=== PATIENT | male | born 1955 | race Caucasian/White ===

== ENCOUNTER 2016-09-08 12:53 | Inpatient (IN) | payer MEDICARE ==
[~2016-09-08] VITALS: Ht 193 cm; Wt 112.8 kg
--- NOTE | 2016-09-08 13:38 | NUR ---
RECEIVED TO ROOM 2202 FROM 'S OFFICE AT THIS TIME. AT BEDSIDE. ALERT AND ORIENTED, WILL CONTINUE WITH PLAN OF CARE.
[2016-09-08 13:55] VITALS: BP 121/80
[2016-09-08 14:19] VITALS: BP 121/80; BMI 30.3
[2016-09-08 15:08] LABS: BASOPHILS 0.2 % (0-2); EOSINOPHILS 6.5 % (0-7); HEMATOCRIT 43.4 % (42.0-54.0); HEMOGLOBIN 15.2 g/dL (13.5-17.5); IMMATURE GRANULOCYTES 0.6 % (0-5); LYMPHOCYTES 18.2 % (15-50); MCH 30.5 pg (26.0-34.0); MCV 87.1 fL (80.0-100.0); MEAN PLATELET VOLUME 9.2 fL (7.4-10.4); MONOCYTES 12.5 % (2-11); RBC 4.98 10x6/uL (4.20-6.10); RDW 13.1 % (11.5-14.5); WBC 8.3 10x3/uL (4.8-10.8)
[2016-09-08 15:21] LABS: PLATELET COUNT 213 10x3/uL (130-400)
[2016-09-08 15:51] LABS: ALBUMIN 2.7 g/dL (3.4-5.0); ALKALINE PHOSPHATASE 64 U/L (46-116); ALT (SGPT) 14 U/L (10-68); BILIRUBIN - TOTAL 0.99 mg/dL (0.2-1.3); CALC OSMOLALITY 282 mosm/kg (275-300); CALCIUM 8.7 mg/dL (8.5-10.1); CARBON DIOXIDE 27.4 mmol/L (21.0-32.0); CHLORIDE - SERUM 101 mmol/L (98-107); CREATININE - SERUM 0.9 mg/dL (0.6-1.3); POTASSIUM - SERUM 3.5 mmol/L (3.5-5.1); PROTEIN - SERUM 6.3 g/dL (6.4-8.2); SODIUM 139 mmol/L (136-145); UREA NITROGEN 10 mg/dL (7-18); eGFR NON AFRICAN AMERICAN > 90 mL/min (90-120)
[2016-09-08 15:57] LABS: GLUCOSE 206 mg/dL (74-106)
[2016-09-08 20:00] VITALS: BP 121/78
[2016-09-09 00:11] VITALS: BP 131/66
[2016-09-09 04:00] VITALS: BP 130/83
--- NOTE | 2016-09-09 08:41 | NUR ---
AWAKE AND ALERT. ORIENTED X3. C/O ABDOMINAL PAIN THIS AM. LUNGS ARE CLEAR BILATERALLY, NO COUGH NOTED. SKIN IS INTACT WITHOUT REDNESS. IV TO LEFT FOREARM IS PATENT WITHOUT REDNESS AT INSERTION SITE. SITTING UP ON SIDE OF BED EATING BREAKFAST. AT BEDSIDE.
[2016-09-09 08:59] VITALS: BP 110/65
--- NOTE | 2016-09-09 10:39 | NUR ---
ATE ALL OF BREAKFAST. UP TO BR PER SELF. LARGE AMOUNT OF BRIGHT RED BLOOD IN STOOL. WILL MONITOR.
[2016-09-09 12:26] LABS: HEMATOCRIT 42.6 % (42.0-54.0); HEMOGLOBIN 14.8 g/dL (13.5-17.5)
[2016-09-09 13:02] VITALS: Ht 193 cm; Wt 112.8 kg
[2016-09-09 13:59] VITALS: BP 120/72
--- NOTE | 2016-09-09 14:00 | NUR ---
OFF UNIT VIA BED FOR TEST.
--- NOTE | 2016-09-09 15:00 | NUR ---
RETURNED FROM TEST. DENIES NEEDS. NO CHANGES.
[2016-09-09 17:43] VITALS: BP 130/80
--- NOTE | 2016-09-09 18:16 | NUR ---
DRANK ABOUT HALF OF CLEAR LIQUID SUPPER. VERY UPSET WITH DIET. WANTS REAL FOOD. NO CHANGES NOTED AT THIS TIME. DENIES NEEDS.
[2016-09-09 20:00] VITALS: BP 122/78
[2016-09-09 20:08] LABS: HEMATOCRIT 39.2 % (42.0-54.0); HEMOGLOBIN 13.7 g/dL (13.5-17.5)
[2016-09-10] VITALS: BP 105/61
[2016-09-10 04:00] VITALS: BP 124/81
--- NOTE | 2016-09-10 04:13 | NUR ---
PATIENT RESTING WITH EYES CLOSED AND NO VISIBLE SIGNS OF DISTRESS. BED IN LOWEST POSITION AND CALL LIGHT WITHIN REACH.
[2016-09-10 05:33] LABS: HEMATOCRIT 41.5 % (42.0-54.0); HEMOGLOBIN 14.3 g/dL (13.5-17.5)
--- NOTE | 2016-09-10 07:47 | NUR ---
AWAKE AND ALERT. ORIENTED X3. NO C/O THIS AM EXCEPT BEING HUNGRY. LUNGS ARE CLEAR BILATERALLY, NO COUGH NOTED. SKIN IS INTACT WITHOUT REDNESS. IV TO LEFT FOREARM IS PATENT WITHOUT REDNESS AT INSERTION SITE. FAMILY IN ROOM. DENIES NEEDS.
[2016-09-10 09:02] VITALS: BP 117/79
--- NOTE | 2016-09-10 09:48 | NUR ---
DRANK MOST OF BREAKFAST. FAMILY AT BEDSDIE. DENIES NEEDS.
--- NOTE | 2016-09-10 10:09 | NUR ---
RESTING QUIETLY WITH EYES CLOSED.
[2016-09-10 11:59] LABS: HEMATOCRIT 40.1 % (42.0-54.0); HEMOGLOBIN 13.9 g/dL (13.5-17.5)
[2016-09-10 12:44] VITALS: BP 115/78
--- NOTE | 2016-09-10 14:35 | NUR ---
REQUESTED AND GIVEN ONE HYDROCODONE PO FOR C/O ABDOMINAL PAIN LEVEL 9. WILL MONITOR.
[2016-09-10 17:19] VITALS: BP 101/66
--- NOTE | 2016-09-10 18:17 | NUR ---
REFUSED SUPPER TRAY. RESTING QUIETLY IN BED. DENIES NEEDS. NO CHANGES NOTED.
[2016-09-10 20:00] VITALS: BP 102/60
--- NOTE | 2016-09-10 20:00 | NUR ---
REC'D IN BED WITH EYES CLOSED EASILY AROUSED WHEN NAME IS CALLED. RESP EVEN AND UNLABORED WITH NO DISTRESS NOTED. CAN EXPRESS NEEDS AND WANTS. ASSESSMENT COMPLETED. C/L IN REACH AT BEDSIDE.
--- NOTE | 2016-09-10 21:40 | NUR ---
C/O ABD PAIN RATING 8/10 ON PAIN SCALE WAS MEDICATED WITH NORCO PER ORDERS. AT BEDSIDE. C/L IN REACH.
[2016-09-11] VITALS: BP 94/63
--- NOTE | 2016-09-11 02:00 | NUR ---
PT IN BED WITH NO DISTRESS. RESPIRATIONS EVEN AND UNLABORED. SIDE RAILS X 2. BED IS LOW. CALL LIGHT IS IN REACH.
[2016-09-11 04:00] VITALS: BP 110/71
[2016-09-11 06:20] LABS: BASOPHILS 0.2 % (0-2); EOSINOPHILS 2.4 % (0-7); HEMATOCRIT 41.2 % (42.0-54.0); HEMOGLOBIN 14.1 g/dL (13.5-17.5); IMMATURE GRANULOCYTES 0.8 % (0-5); LYMPHOCYTES 8.1 % (15-50); MCH 30.2 pg (26.0-34.0); MCHC 34.2 g/dL (31.0-37.0); MCV 88.2 fL (80.0-100.0); MEAN PLATELET VOLUME 9.1 fL (7.4-10.4); MONOCYTES 11.6 % (2-11); NEUTROPHILS 76.9 % (40-80); PLATELET COUNT 192 10x3/uL (130-400); RBC 4.67 10x6/uL (4.20-6.10); RDW 13.3 % (11.5-14.5); WBC 10.1 10x3/uL (4.8-10.8)
[2016-09-11 06:38] LABS: ALBUMIN 2.1 g/dL (3.4-5.0); ALKALINE PHOSPHATASE 50 U/L (46-116); ALT (SGPT) 11 U/L (10-68); CALC OSMOLALITY 274 mosm/kg (275-300); CALCIUM 7.8 mg/dL (8.5-10.1); CARBON DIOXIDE 23.7 mmol/L (21.0-32.0); CHLORIDE - SERUM 104 mmol/L (98-107); CREATININE - SERUM 0.8 mg/dL (0.6-1.3); GLUCOSE 191 mg/dL (74-106); PROTEIN - SERUM 5.6 g/dL (6.4-8.2); SODIUM 136 mmol/L (136-145); UREA NITROGEN 6 mg/dL (7-18); eGFR NON AFRICAN AMERICAN > 90 mL/min (90-120)
--- NOTE | 2016-09-11 08:08 | NUR ---
PT SEEN AND ASSESSED. NPO FOR COLONOSCOPY THIS AM. NPO SINCE MIDNIGHT. NO COMPLAINTS OF PAIN OR N/V AT PRESENT. SPOUSE AT BEDSIDE. CONSENTS SIGNED. CALL LIGHT IN REACH
[2016-09-11 08:26] VITALS: BP 109/67
[2016-09-11 12:26] VITALS: BP 117/73
--- NOTE | 2016-09-11 14:34 | NUR ---
Met with the patient and his , Kyleigh, at the bedside. Verified face sheet information. 's contact phone number is [phone]. PCP- DR Mario Izquierdo Surgeon- DR High [facility]- [facility] in [place], [place] Patient's will provide transportation to home. There are 4 steps to enter w/ a railing. They also have a ramp. Patient does not receive any home health services. He feels he will not have a need for h/h at discharge. Patient has a history of abdominal surgery and therefore has a walker, wheelchair, commode, cane and has a seat in the shower but no safety bars. Patient is scheduled for a flex sigmoidoscopy today. Is awaiting his studies.
--- NOTE | 2016-09-11 14:44 | NUR ---
Is the patient Alert and Oriented? Yes 0 * How many steps to enter\exit or inside your home? Four 0 * PCP DR Mario Izquierdo 0 * Pharmacy [facility] in [place], [place] 0 * Preadmission Environment Home with Family 0 * ADLs Independent 0 * Equipment Bedside Commode Cane Walker Wheelchair 0 * Other Equipment Stairs w/ railing and also has a ramp 0 * List name and contact numbers for known caregivers / representatives who currently or will assist patient after discharge: Kyleigh Arreguin- - [phone] 0 * Community resources currently utilized None 0 * Additional services required to return to the preadmission environment? No 0 * Can the patient safely return to the preadmission environment? Yes 0 * Has this patient been hospitalized within the prior 30 days at any hospital? No 0
--- NOTE | 2016-09-11 16:05 | NUR ---
TO GI LAB PER BED
--- NOTE | 2016-09-11 17:55 | NUR ---
RETURNED FROM GI LAB. VS 116/76 P 93 NO COMPLAINTS. FAMILY AT BEDSIDE
--- NOTE | 2016-09-11 19:05 | NUR ---
Received patient resting in bed with eyes open, assessment completed per flowsheet. Patient AO x4, calm and cooperative. Eyes PERRLA @ 4mm with brisk response, sclera is white. S1/S2 noted, rhythmic and regular. Breathing is even and unlabored on room air with O2 sat 94%. Abdomen is soft and round, tender to palpation with c/o pain 10/10. Bowel sounds active x4. Patient ambulates to bathroom w/o assistance, 150 ml dark concentrated urine in collection. 230ml Bloody stool noted in commode. Full ROM all extremities with all pulses palpable, cap refill <3 sec. 20g PIV noted L forearm, patent with NS @ 100ml/hr. No further needs at this time, all VSS and will continue to monitor.
[2016-09-11 21:00] VITALS: BP 129/61
--- NOTE | 2016-09-11 21:00 | NUR ---
HS meds given without difficulty, 100ml bloody stool noted in commode. No further needs at this time, all VSS and will continue to monitor.
--- NOTE | 2016-09-11 23:00 | NUR ---
Patient resting in bed with eyes closed, breathing is even and unlabored on room air. Patient c/o intermitent abdominal cramping 06/02, will provide PRN medication when available. No further needs at this time, all VSS and will continue to monitor.
[2016-09-12] VITALS: BP 119/61; BP 127/81
[2016-09-12 00:19] LABS: HEMATOCRIT 41.8 % (42.0-54.0); HEMOGLOBIN 14.2 g/dL (13.5-17.5)
--- NOTE | 2016-09-12 03:00 | NUR ---
Reassessment completed per flowsheet, patient resting in bed with eyes closed. S1/S2 noted rhythmic and regular. Breathing is even and unlabored on room air with O2 sat 95%. Abdomen is round and soft, tender to palpation with patient c/o intermittent cramping /10. PRN pain medication provided, will reassess. All pulses palpable with cap refill <3 sec. No further needs at this time, all VSS and will continue to monitor.
[2016-09-12 04:00] VITALS: BP 114/72
--- NOTE | 2016-09-12 05:00 | NUR ---
Patient resting in bed with eyes closed, breathing is even and unlabored on room air. Denies pain or other needs at this time, all VSS and will continue to monitor.
[2016-09-12 06:45] LABS: BASOPHILS 0.3 % (0-2); EOSINOPHILS 1.9 % (0-7); HEMATOCRIT 40.8 % (42.0-54.0); HEMOGLOBIN 13.9 g/dL (13.5-17.5); IMMATURE GRANULOCYTES 0.6 % (0-5); LYMPHOCYTES 14.1 % (15-50); MCH 30.2 pg (26.0-34.0); MCHC 34.1 g/dL (31.0-37.0); MCV 88.7 fL (80.0-100.0); MEAN PLATELET VOLUME 9.2 fL (7.4-10.4); NEUTROPHILS 69.1 % (40-80); PLATELET COUNT 228 10x3/uL (130-400); RDW 13.5 % (11.5-14.5); WBC 7.8 10x3/uL (4.8-10.8)
[2016-09-12 07:08] LABS: ALBUMIN 1.9 g/dL (3.4-5.0); ALKALINE PHOSPHATASE 51 U/L (46-116); ALT (SGPT) 9 U/L (10-68); CALC OSMOLALITY 280 mosm/kg (275-300); CALCIUM 7.7 mg/dL (8.5-10.1); CARBON DIOXIDE 25.1 mmol/L (21.0-32.0); CHLORIDE - SERUM 106 mmol/L (98-107); CREATININE - SERUM 0.9 mg/dL (0.6-1.3); GLUCOSE 170 mg/dL (74-106); POTASSIUM - SERUM 3.3 mmol/L (3.5-5.1); PROTEIN - SERUM 5.4 g/dL (6.4-8.2); SODIUM 140 mmol/L (136-145); UREA NITROGEN 8 mg/dL (7-18); eGFR NON AFRICAN AMERICAN > 90 mL/min (90-120)
--- NOTE | 2016-09-12 07:50 | NUR ---
Alert and oriented times three,verbalized name and verbalized being tired and sleepy. Reports no present pain or nausea. Bowel sounds active and abd soft. Reinforced instructions of dietary restriction of NPO except ice chips. Verbalized understanding. Spouse at bedside. Call light within reach. No distress noted.
[2016-09-12 08:12] VITALS: BP 132/78
--- NOTE | 2016-09-12 12:08 | NUR ---
Up to bathroom had 200 ml of dark red bloody loose stool. States pain level still around a level 1 at this time
[2016-09-12 12:27] VITALS: BP 119/67
[2016-09-12 13:47] LABS: HEMATOCRIT 42.1 % (42.0-54.0); HEMOGLOBIN 14.6 g/dL (13.5-17.5)
--- NOTE | 2016-09-12 13:53 | NUR ---
NUTRITION MONITORING & EVAL CHART REVIEWED. PT CURRENTLY NPO. WILL MONITOR DIET ADVANCEMENT, PO INTAKE. RD FOLLOWING.
--- NOTE | 2016-09-12 14:03 | NUR ---
Resting quietly. No distress assessed. Spouse at bedside.
[2016-09-12 16:26] VITALS: BP 108/53
[2016-09-12 20:00] VITALS: BP 102/57
[2016-09-12 21:07] LABS: HEMATOCRIT 42.2 % (42.0-54.0); HEMOGLOBIN 14.7 g/dL (13.5-17.5)
--- NOTE | 2016-09-12 21:10 | NUR ---
STOOL SPECIMEN COLLECTED AND SENT TO LAB
--- NOTE | 2016-09-12 22:10 | NUR ---
AWAKE,ALERT.NO COMPLAINTS VOICED. IV INFUSING TO LEFT FOREARM WIHOUT REDNESS OR EDEMA NOTED.UP TO BATHROOM WITH ASSIST. CL IN REACH. AT BEDSIDE.
--- NOTE | 2016-09-12 23:39 | NUR ---
RESTING QUIETLY. NO DISTRESS NOTED.. REMAINS AT BEDSIDE
[2016-09-13] VITALS (8 sets, daily range): BP systolic 108–131; BP diastolic 62–77
--- NOTE | 2016-09-13 02:00 | NUR ---
PT IN BED WITH NO DISTRESS. LEFT ARM IV WITH NS @ 100. SIDE RAILS X 2. BED IS LOW. CALL LIGHT IS IN REACH.
--- NOTE | 2016-09-13 06:04 | NUR ---
AROUSES EASILY TO VERBAL STIMULI. NO COMPLAINTS VOICED. CL IN REACH.
[2016-09-13 06:35] LABS: BASOPHILS 0.1 % (0-2); EOSINOPHILS 4.4 % (0-7); HEMOGLOBIN 13.6 g/dL (13.5-17.5); IMMATURE GRANULOCYTES 0.6 % (0-5); LYMPHOCYTES 15.1 % (15-50); MCH 30.3 pg (26.0-34.0); MCV 89.1 fL (80.0-100.0); MEAN PLATELET VOLUME 8.9 fL (7.4-10.4); NEUTROPHILS 65.8 % (40-80); PLATELET COUNT 199 10x3/uL (130-400); RBC 4.49 10x6/uL (4.20-6.10); WBC 7.2 10x3/uL (4.8-10.8)
--- NOTE | 2016-09-13 07:00 | NUR ---
REPORT RECIEVED ASSUMED CARE. PATIENT IN BED WITH IV INTACT. NO COMPLAINTS AT THIS TIME. CALL LIGHT WITHIN REACH. FAMILY AT BEDSIDE.
[2016-09-13 07:16] LABS: ALBUMIN 1.8 g/dL (3.4-5.0); ALKALINE PHOSPHATASE 43 U/L (46-116); CALC OSMOLALITY 279 mosm/kg (275-300); CALCIUM 7.6 mg/dL (8.5-10.1); CARBON DIOXIDE 27.4 mmol/L (21.0-32.0); CHLORIDE - SERUM 106 mmol/L (98-107); CREATININE - SERUM 0.8 mg/dL (0.6-1.3); GLUCOSE 136 mg/dL (74-106); POTASSIUM - SERUM 3.3 mmol/L (3.5-5.1); PRE-ALBUMIN 8.2 mg/dL (18.0-35.7); PROTEIN - SERUM 5.2 g/dL (6.4-8.2); SODIUM 140 mmol/L (136-145); UREA NITROGEN 9 mg/dL (7-18); eGFR NON AFRICAN AMERICAN > 90 mL/min (90-120)
[2016-09-13 07:30] LABS: ALT (SGPT) 6 U/L (10-68)
--- NOTE | 2016-09-13 11:21 | NUR ---
PATIENT IN BED WITH IV INTACT. NO COMPLAINTS. EYES CLOSED RESTING QUIETLY. CALL LIGHT WITHIN REACH.
[2016-09-13 12:53] LABS: HEMATOCRIT 39.9 % (42.0-54.0); HEMOGLOBIN 13.7 g/dL (13.5-17.5)
--- NOTE | 2016-09-13 15:58 | NUR ---
PATIENT STOOL COLLECTED FOR OCCULT BLOOD AND SENT TO LAB. PATIENT HAS NO COMPLAINTS. CALL LIGHT WITHIN REACH.
--- NOTE | 2016-09-13 18:45 | NUR ---
PATIENT IN BED WITH IV INTACT. NO COMPLAINTS AT THIS TIME. FAMILY AT BEDSIDE. CALL LIGHT WITHIN REACH.
[2016-09-13 20:57] LABS: HEMATOCRIT 43.4 % (42.0-54.0)
--- NOTE | 2016-09-13 22:04 | NUR ---
AWAKE,ALERT. COMPLAINTS OF ABD PAIN. NORCO GIVEN PER REEQUEST. IV INFUSING TTO LEFT FOREARM WIHTOUT REDNESS OR EDEMA NOTED. CL IN REACH. AT BEDSIDE.
--- NOTE | 2016-09-14 02:58 | NUR ---
PATIENT RESTING IN BED WITH EYES CLOSED AND NO VISIBLE SIGNS OF DISTRESS. BED IN LOWEST POSITION AND CALL LIGHT WITHIN REACH.
--- NOTE | 2016-09-14 03:51 | NUR ---
RESTING QUIETLY. NO DISTRESS NOTED.
[2016-09-14 04:39] VITALS: BP 115/73
--- NOTE | 2016-09-14 06:15 | NUR ---
AROUSES EASILY TO VERBAL STIMULI. NO COMPLAINTS VOICED. CL IN REACH
[2016-09-14 06:51] LABS: BASOPHILS 0.4 % (0-2); EOSINOPHILS 3.9 % (0-7); HEMATOCRIT 38.8 % (42.0-54.0); HEMOGLOBIN 13.4 g/dL (13.5-17.5); IMMATURE GRANULOCYTES 0.8 % (0-5); LYMPHOCYTES 14.4 % (15-50); MCH 30.5 pg (26.0-34.0); MCHC 34.5 g/dL (31.0-37.0); MCV 88.4 fL (80.0-100.0); MEAN PLATELET VOLUME 8.9 fL (7.4-10.4); MONOCYTES 16.2 % (2-11); NEUTROPHILS 64.3 % (40-80); PLATELET COUNT 208 10x3/uL (130-400); RBC 4.39 10x6/uL (4.20-6.10); RDW 13.9 % (11.5-14.5); WBC 7.4 10x3/uL (4.8-10.8)
--- NOTE | 2016-09-14 07:00 | NUR ---
REPORT RECIEVED ASSUMED CARE. PATIENT IN BED WITH IV INTACT. NO COMPLAINTS AT THIS TIME. IN BED WITH FAMILY AT BEDSIDE. CALL LIGHT WITHIN REACH.
[2016-09-14 07:13] LABS: ALBUMIN 1.6 g/dL (3.4-5.0); ALKALINE PHOSPHATASE 42 U/L (46-116); BILIRUBIN - TOTAL 0.42 mg/dL (0.2-1.3); CALCIUM 7.5 mg/dL (8.5-10.1); CARBON DIOXIDE 25.4 mmol/L (21.0-32.0); CHLORIDE - SERUM 106 mmol/L (98-107); CREATININE - SERUM 0.6 mg/dL (0.6-1.3); GLUCOSE 151 mg/dL (74-106); PROTEIN - SERUM 4.9 g/dL (6.4-8.2); SODIUM 140 mmol/L (136-145); eGFR NON AFRICAN AMERICAN > 90 mL/min (90-120)
[2016-09-14 07:20] LABS: ALT (SGPT) 11 U/L (10-68); CALC OSMOLALITY 279 mosm/kg (275-300); POTASSIUM - SERUM 2.8 mmol/L (3.5-5.1); UREA NITROGEN 6 mg/dL (7-18)
[2016-09-14 07:27] LABS: OVA + PARASITE EXAM Final report (())
[2016-09-14 07:58] VITALS: BP 141/76
--- NOTE | 2016-09-14 09:25 | NUR ---
PATIENT RECIEVED DILAUDID IVP SLOWLY OVER 2 MINUTES. STATED PAIN IN ABDOMEN AT THIS TIME. CALL LIGHT WITHIN REACH.
[2016-09-14 12:46] VITALS: BP 137/75
[2016-09-14 13:06] LABS: HEMATOCRIT 39.6 % (42.0-54.0); HEMOGLOBIN 13.8 g/dL (13.5-17.5)
[2016-09-14 16:02] VITALS: BP 128/65
--- NOTE | 2016-09-14 17:45 | NUR ---
NOTIFIED DR. IVEY OF PATIENT POTASSIUM 2.8. NEW ORDERS RECIEVED AND CARRIED OUT.
--- NOTE | 2016-09-14 18:55 | NUR ---
PATIENT IN BED WITH IV INTACT. NOTIFIED DR. MEDELLIN OF BLOOD IN STOOL AND ABD PAIN. NEW ORDERS RECIEVED. PATIENT CALL LIGHT WITHIN REACH.
[2016-09-14 20:54] VITALS: BP 145/78
--- NOTE | 2016-09-14 21:16 | NUR ---
AWAKE, ALERT. NO COMPLAINTS AT THIS TIME. IV INTACT TO LEFT FOREARM WITHOUT REDNESS OR EDEMA NOTED. FAMILY AT BEDSIDE. CL IN REACH.
[2016-09-14 22:15] LABS: HEMATOCRIT 39.1 % (42.0-54.0); HEMOGLOBIN 13.6 g/dL (13.5-17.5)
[2016-09-15] VITALS: BP 139/70
--- NOTE | 2016-09-15 01:31 | NUR ---
RESTING QUIETLY. NO DISTRESS NOTED.
[2016-09-15 04:00] VITALS: BP 136/83
--- NOTE | 2016-09-15 06:01 | NUR ---
AWAKE,WITHOUT COMPLAINTS VOICED. AT BEDSIDE. CL IN REACH
[2016-09-15 06:24] LABS: BASOPHILS 0.3 % (0-2); EOSINOPHILS 2.8 % (0-7); HEMATOCRIT 38.7 % (42.0-54.0); HEMOGLOBIN 13.3 g/dL (13.5-17.5); IMMATURE GRANULOCYTES 0.9 % (0-5); LYMPHOCYTES 15.1 % (15-50); MCH 30.2 pg (26.0-34.0); MCHC 34.4 g/dL (31.0-37.0); MCV 87.8 fL (80.0-100.0); MONOCYTES 13.7 % (2-11); NEUTROPHILS 67.2 % (40-80); PLATELET COUNT 199 10x3/uL (130-400); RBC 4.41 10x6/uL (4.20-6.10); RDW 13.9 % (11.5-14.5); WBC 6.5 10x3/uL (4.8-10.8)
[2016-09-15 06:58] LABS: ALBUMIN 1.6 g/dL (3.4-5.0); ALKALINE PHOSPHATASE 38 U/L (46-116); ALT (SGPT) 9 U/L (10-68); BILIRUBIN - TOTAL 0.46 mg/dL (0.2-1.3); CALC OSMOLALITY 278 mosm/kg (275-300); CALCIUM 7.7 mg/dL (8.5-10.1); CARBON DIOXIDE 25.5 mmol/L (21.0-32.0); CHLORIDE - SERUM 104 mmol/L (98-107); CREATININE - SERUM 0.6 mg/dL (0.6-1.3); GLUCOSE 152 mg/dL (74-106); POTASSIUM - SERUM 3.2 mmol/L (3.5-5.1); PROTEIN - SERUM 4.9 g/dL (6.4-8.2); SODIUM 140 mmol/L (136-145); UREA NITROGEN 5 mg/dL (7-18); eGFR NON AFRICAN AMERICAN > 90 mL/min (90-120)
--- NOTE | 2016-09-15 07:00 | NUR ---
REPORT RECIEVED ASSUMED CARE. PATIENT IN BED WITH IV INTACT. NO COMPLAINTS AT THIS TIME. CALL LIGHT WITHIN REACH.
[2016-09-15 07:58] VITALS: BP 138/71
[2016-09-15 11:00] LABS: MAGNESIUM - SERUM 1.8 mg/dL (1.8-2.4); PHOSPHOROUS 2.5 mg/dL (2.5-4.9)
--- NOTE | 2016-09-15 12:26 | NUR ---
NUTRITION MONITORING & EVAL CHART REVIEWED, TPN AND LIPIDS STARTED PER MD CONSULT. LABS ORDERED TIMES 4 DAYS. WILL INCREASE TPN RATE IN AM AND ADJUST ELECTROLYTES. RD FOLLOWING
[2016-09-15 12:28] VITALS: BP 139/69
[2016-09-15 12:56] LABS: HEMATOCRIT 37.9 % (42.0-54.0); HEMOGLOBIN 13.2 g/dL (13.5-17.5)
--- NOTE | 2016-09-15 15:30 | NUR ---
COUDUIT CATH PLACED AT THIS TIME BY RN AND NM. PATIENT TOLERATED WITH SMALL AMOUNT OF PAIN. NO COMPLAINTS. FAMILY AT BEDSIDE. CALL LIGHT WITHIN REACH. PATIENT PUT OUT 1000
--- NOTE | 2016-09-15 18:55 | NUR ---
PATIENT IN BED WITH IV AND ALLEN INTACT. FAMILY AT BEDSIDE. NO COMPLAINTS. CALL LIGHT WITHIN REACH.
[2016-09-15 20:00] VITALS: BP 139/75
[2016-09-16] VITALS: BP 133/69
[2016-09-16 00:36] LABS: HEMATOCRIT 36.9 % (42.0-54.0); HEMOGLOBIN 12.7 g/dL (13.5-17.5)
[2016-09-16 04:00] VITALS: BP 124/77
--- NOTE | 2016-09-16 05:00 | NUR ---
REPORT RECEIVED AND CARE ASSUMED. AT BEDSIDE. SIDE RAILS UP X 2 IV PATENT WITH TPN #1 INFUSING PER PICC LINE AND FOREARM IV ON LEFT ARM. ALLEN CATHETER IN PLACE. PATIENT HAS WENT SIX TIMES ON BEDPAN TONIGHT, VERY THICKEN RED TINTED LIQUID STOOL. HAS HAD LOT OF ABDOMEN PAIN TONIGHT. REQUESTED MORPHINE 1 MG IVP SLOWLY X 3 TONIGHT. SR UP X 2. BED LOW.
[2016-09-16 07:30] LABS: CALCIUM 7.3 mg/dL (8.5-10.1); CARBON DIOXIDE 30.8 mmol/L (21.0-32.0); CHLORIDE - SERUM 104 mmol/L (98-107); CREATININE - SERUM 0.7 mg/dL (0.6-1.3); MAGNESIUM - SERUM 1.8 mg/dL (1.8-2.4); PHOSPHOROUS 2.4 mg/dL (2.5-4.9); SODIUM 139 mmol/L (136-145); eGFR NON AFRICAN AMERICAN > 90 mL/min (90-120)
--- NOTE | 2016-09-16 07:32 | NUR ---
SLEEPING, AROUSES TO VOICE, AT BEDSIDE, SOME COMPLAINTS OF PAIN IN THE ABDOMEN, BED LOWETS POSITION, CALL LIGHT IN REACH, WILL CONTINUE TO MONITOR
[2016-09-16 07:53] LABS: CALC OSMOLALITY 283 mosm/kg (275-300); GLUCOSE 274 mg/dL (74-106); UREA NITROGEN 2 mg/dL (7-18)
[2016-09-16 07:55] LABS: POTASSIUM - SERUM 2.8 mmol/L (3.5-5.1)
[2016-09-16 09:48] VITALS: BP 112/62
--- NOTE | 2016-09-16 10:57 | NUR ---
PATIENT IN LOW PEREZ POSITION RESTING WITH EYES CLOSED. RESPIRATIONS EVEN AND UNLABORED. FAMILY AT BEDSIDE. DENIES NEEDS. SIDE RAILS UP X2. BED IN LOW POSITION. CALL LIGHT IN REACH.
[2016-09-16 13:02] VITALS: BP 114/70
[2016-09-16 16:02] VITALS: BP 114/68
--- NOTE | 2016-09-16 20:30 | NUR ---
PT WAS MEDICATED AT THIS TIME FOR NAUSEA WITH ZOFRAN PER ORDERS. C/L IN REACH AT BEDSIDE.
--- NOTE | 2016-09-16 20:34 | NUR ---
REC'D IN BED WITH EYES CLOSED AROUSED WHEN NAME IS CALLED. RESP EVEN AND UNLABORED WITH NO DISTRESS NOTED. CAN EXPRESS NEEDS AND WANTS. C/O NAUSEA AT THIS TIME. WAS MEDICATED WITH ZOFRAN PER ORDERS. C/O PAIN RATING 8/10 ON PAIN SCALE. AT BEDSIDE. C/L IN REACH.
--- NOTE | 2016-09-16 21:51 | NUR ---
PT WAS MEDICATED FOR C/O ABD PAIN AT THIS TIME WITH MORPHINE PER ORDERS. AT BEDSIDE.
[2016-09-16 23:14] VITALS: BP 121/65
--- NOTE | 2016-09-17 02:00 | NUR ---
PT WAS MEDICATED AT THIS TIME FOR C/O ABD PAIN RATING 8/10 ON PAIN SCALE WITH MORPHINE. WILL CONTINUE TO OBSERVE FOR NEEDS. AT BEDSIDE.
--- NOTE | 2016-09-17 03:05 | NUR ---
RESTING WITH EYES CLOSED, NO DISTRESS NOTED, VISITOR IN RECLINER, FALL PRECAUTIONS IN PLACE, CL IN REACH
[2016-09-17 05:06] VITALS: BP 126/56
[2016-09-17 05:32] LABS: BASOPHILS 0.2 % (0-2); EOSINOPHILS 0.8 % (0-7); HEMATOCRIT 45.1 % (42.0-54.0); HEMOGLOBIN 12.6 g/dL (13.5-17.5); IMMATURE GRANULOCYTES 1.2 % (0-5); LYMPHOCYTES 9.6 % (15-50); MCH 30.1 pg (26.0-34.0); MCHC 27.9 g/dL (31.0-37.0); MCV 107.6 fL (80.0-100.0); MEAN PLATELET VOLUME 8.9 fL (7.4-10.4); MONOCYTES 5.9 % (2-11); NEUTROPHILS 82.3 % (40-80); PLATELET COUNT 180 10x3/uL (130-400); RBC 4.19 10x6/uL (4.20-6.10); RDW 14.6 % (11.5-14.5); WBC 5.9 10x3/uL (4.8-10.8)
[2016-09-17 06:46] LABS: ALBUMIN 1.7 g/dL (3.4-5.0); ALKALINE PHOSPHATASE 44 U/L (46-116); ALT (SGPT) 7 U/L (10-68); CARBON DIOXIDE 27.9 mmol/L (21.0-32.0); CHLORIDE - SERUM 106 mmol/L (98-107); CREATININE - SERUM 0.7 mg/dL (0.6-1.3); PHOSPHOROUS 2.6 mg/dL (2.5-4.9); PROTEIN - SERUM 5.6 g/dL (6.4-8.2); SODIUM 138 mmol/L (136-145); UREA NITROGEN 2 mg/dL (7-18); eGFR NON AFRICAN AMERICAN > 90 mL/min (90-120)
[2016-09-17 06:47] LABS: CALC OSMOLALITY 284 mosm/kg (275-300); GLUCOSE 333 mg/dL (74-106); POTASSIUM - SERUM 3.6 mmol/L (3.5-5.1)
--- NOTE | 2016-09-17 07:58 | NUR ---
SITTING IN CHAIR, SHAVING HIM, DENIES NEEDS, CALL LIGHT IN REACH, WILL CONTINUE TO MONITOR
--- NOTE | 2016-09-17 10:05 | NUR ---
PATIENT IN MID PEREZ POSITION RESTING QUIETLY. RESPIRATIONS EVEN AND UNLABORED. FAMILY PRESENT. SIDE RAILS UP X3. BED IN LOW POSITION. CALL LIGHT IN REACH.
[2016-09-17 12:20] VITALS: BP 126/90
--- NOTE | 2016-09-17 13:19 | NUR ---
REFUSES TO TAKE INSULIN
--- NOTE | 2016-09-17 13:35 | NUR ---
SLEEPING, AROUSES TO VOICE, DENIES NEEDS, WILL CONITNUE TO MONITOR
[2016-09-17 16:23] VITALS: BP 118/71
--- NOTE | 2016-09-17 18:10 | HP ---
PATIENT: DOUGLAS MONTE MEDICAL RECORD: [id number] ACCOUNT: [id number] LOCATION:[id number] 53 ADMISSION DATE: 09/08/16 HISTORY AND PHYSICAL EXAMINATION DATE OF ADMISSION: 09/08/2016 CHIEF COMPLAINT: Abdominal pain, diarrhea, failed outpatient therapy. HISTORY OF PRESENT ILLNESS: This is a 61-year-old male, who has been having diarrhea for over a week, is accompanied by crampy abdominal pain that comes and goes like a spasm. He had 1 day of some nausea, maybe a little vomiting, but not much. I saw him 2 days ago in the office and his CBC was normal. Comprehensive metabolic panel was normal. Thyroid was normal. Urinalysis showed no bacteria, also have not seen this patient since October of last year and he states he has lost about 30 pounds and not trying. He came back in the office today with worsening pain, did a flat and upright x-ray that looks like it still showed stool in the colon, throughout the entire colon, but with his worsening pain and symptoms. He is directly admitted to [place]. PAST MEDICAL AND SURGICAL HISTORY: He has a remote history of hypertension, but is not on any medications for that anymore. He had a stroke in 2010 or 2011 with left arm weakness. He went to rehab for a few days and has completely recovered. He had a pulmonary embolus/DVT around 2005. SURGICAL HISTORY: He had umbilical hernia in November of last year by Dr. High. HOME MEDICATIONS: Actually, I started him on Flagyl 500 mg t.i.d. 2 days ago as the only medicine he was on at home. ALLERGIES: POSSIBLY TO THE LOVENOX. SOCIAL HISTORY: He is and retired. FAMILY HISTORY: His father when the patient was very young. He did not know the cause of . His mother in her 70s and he does not know the cause of . HABITS: Former smoker, no alcohol or drugs. REVIEW OF SYSTEMS: GENERAL: He reports about 30-pound weight loss since last year. HEENT: No particular sinus or allergy problems. RESPIRATORY: No history of asthma or emphysema. CARDIAC: No chest pain, palpitations or history of coronary artery disease. GASTROINTESTINAL: No history of diarrhea or constipation. He has never had a colonoscopy. GENITOURINARY: No significant problems there. MUSCULOSKELETAL: Occasional aches and pains. NEUROLOGIC: No headaches or seizures. PSYCHIATRIC: Denies depression or melancholia. PHYSICAL EXAMINATION: VITAL SIGNS: Temperature 97.9, pulse 91, respirations 18, blood pressure 121/80 HISTORY AND PHYSICAL [id number] LAVELL,DOUGLAS Higuera and O2 sat 94%. HEENT: Grossly within normal limits. NECK: Supple. No JVD or bruit. HEART: Regular rate and rhythm without murmur. LUNGS: Clear. ABDOMEN: Soft. There is tenderness to palpation in the lower abdomen in my office. There is no guarding, no rebound, no mass. Bowel sounds are active. RECTAL: Not done. EXTREMITIES: No edema. LABORATORY DATA: Labwork today, CBC with a white count of 8300, hemoglobin 15.2, hematocrit 43.4, normal differential. Basic metabolic panel is all normal. Glucose is a little high at 206. Liver enzymes were all normal. ASSESSMENT: Abdominal pain and diarrhea, has failed outpatient therapy. PLAN: We will admit, give IV fluids, check labs, check stool cultures. CT of the abdomen and pelvis, consult GI. Other tests and procedures as warranted. TRANSINT:[id number] Voice Confirmation ID: [id number] DOCUMENT ID: [id number] JATIN HAMPTON MD at 1810 CC: [id number] DICTATION DATE: 09/08/[id number] PONY TRIMMER: 09/08/[id number] ADM IN [facility] [address] [place] [address]
[2016-09-17 19:00] VITALS: BP 138/84
--- NOTE | 2016-09-17 20:54 | NUR ---
AWAKE AND ALERT. RESP EVEN AND UNLABORED WITH NO DISTRESS NOTED. CAN EXPRESS NEEDS AND WANTS. C/O ABD PAIN RATING 9/10 ON PAIN SCALE. ASSESSMENT COMPLETED. AT BEDSIDE. C/L IN REACH AT BEDSIDE.
--- NOTE | 2016-09-17 21:14 | NUR ---
PT C/O ABD PAIN RATING 8/10 ON PAIN SCALE WAS MEDICATED WITH MORPHINE PER WELL ZOFRAN FOR NAUSEA.
[2016-09-18 03:06] LABS: NOROVIRUS GI Negative (Negative); NOROVIRUS GII Negative (Negative)
[2016-09-18 04:00] VITALS: BP 122/768
--- NOTE | 2016-09-18 06:08 | NUR ---
PATIENT SLEEPING ON LEFT SIDE. HOB 10 DEGREES. RR EVEN AND UNLABORED. 0 S/S OF DISTRESS. ALLEN DRAINING TO GRAVITY. FAMILY AT BEDSIDE. SRX2. CALL LIGHT WITHIN REACH.
[2016-09-18 06:41] LABS: BASOPHILS 0.2 % (0-2); EOSINOPHILS 0.8 % (0-7); HEMATOCRIT 39.1 % (42.0-54.0); IMMATURE GRANULOCYTES 2.7 % (0-5); LYMPHOCYTES 11.2 % (15-50); MCH 29.7 pg (26.0-34.0); MCHC 33.2 g/dL (31.0-37.0); MONOCYTES 7.7 % (2-11); NEUTROPHILS 77.4 % (40-80); PLATELET COUNT 188 10x3/uL (130-400); RBC 4.37 10x6/uL (4.20-6.10); RDW 13.7 % (11.5-14.5)
[2016-09-18 06:54] LABS: MCV 89.5 fL (80.0-100.0)
[2016-09-18 07:08] LABS: CALC OSMOLALITY 283 mosm/kg (275-300); CALCIUM 7.5 mg/dL (8.5-10.1); CARBON DIOXIDE 32.4 mmol/L (21.0-32.0); CHLORIDE - SERUM 105 mmol/L (98-107); CREATININE - SERUM 0.7 mg/dL (0.6-1.3); MAGNESIUM - SERUM 1.9 mg/dL (1.8-2.4); PHOSPHOROUS 2.8 mg/dL (2.5-4.9); POTASSIUM - SERUM 3.6 mmol/L (3.5-5.1); SODIUM 140 mmol/L (136-145); THYROID STIMULATING HORMONE 1.37 uIU/mL (0.36-3.74); UREA NITROGEN 2 mg/dL (7-18); eGFR NON AFRICAN AMERICAN > 90 mL/min (90-120)
[2016-09-18 07:15] LABS: GLUCOSE 263 mg/dL (74-106)
[2016-09-18 08:37] VITALS: BP 115/79
[2016-09-18 12:05] VITALS: BP 118/82
[2016-09-18 16:30] VITALS: BP 153/89
--- NOTE | 2016-09-18 18:00 | NUR ---
PATIENT IN BED WITH IV INTACT. NO COMPLAINTS AT THIS TIME. FAMILY AT BEDSIDE. CALL LIGHT WITHIN REACH.
[2016-09-19] VITALS: BP 117/75
--- NOTE | 2016-09-19 01:59 | NUR ---
COSIGNED INSULIN FOR AUTOMOTIVE PROFESSIONAL. HALF DOSE GIVEN PER PATIENT REQUEST. PATIENT SLEEPING ON RIGHT SIDE. HOB 10 DEGREES. RR EVEN AND UNLABORED. 0 S/S OF DISTRESS. AT BEDSIDE. SRX2. BED LOW. CALL LIGHT WITHIN REACH.
[2016-09-19 03:09] LABS: OVA + PARASITE EXAM Final report (())
[2016-09-19 07:12] LABS: CALC OSMOLALITY 279 mosm/kg (275-300); CALCIUM 7.8 mg/dL (8.5-10.1); CARBON DIOXIDE 30.8 mmol/L (21.0-32.0); CHLORIDE - SERUM 103 mmol/L (98-107); CREATININE - SERUM 0.7 mg/dL (0.6-1.3); GLUCOSE 254 mg/dL (74-106); MAGNESIUM - SERUM 1.9 mg/dL (1.8-2.4); PHOSPHOROUS 3.1 mg/dL (2.5-4.9); POTASSIUM - SERUM 3.4 mmol/L (3.5-5.1); SODIUM 137 mmol/L (136-145); eGFR NON AFRICAN AMERICAN > 90 mL/min (90-120)
[2016-09-19 07:15] LABS: UREA NITROGEN 3 mg/dL (7-18)
--- NOTE | 2016-09-19 07:30 | NUR ---
REPORT RECIEVED ASSUMED CARE. PATIENT IN BED WITH IV INTACT. NO COMPLAINTS AT THIS TIME. CALL LIGHT WITHIN REACH.
[2016-09-19 08:19] LABS: FOLATE (FOLIC ACID) - SERUM 6.4 ng/mL (>3.0)
[2016-09-19 08:34] VITALS: BP 111/67
--- NOTE | 2016-09-19 10:51 | NUR ---
NUTRITION MONITORING & EVAL CHART REVIEWED. CONTINUES TPN AND LIPIDS. GI NOTE REVIEWED. BMP, MAG, PHOS ADDED TO AM LABS x [address] FOLLOWING
[2016-09-19 12:06] VITALS: BP 109/68
--- NOTE | 2016-09-19 18:55 | NUR ---
PATIENT IN BED WITH NO COMPLAINTS. FAMILY AT BEDSIDE. IV INTACT. CALL LIGHT WITHIN REACH.
[2016-09-19 19:00] VITALS: BP 127/84
--- NOTE | 2016-09-19 20:18 | NUR ---
PT REQ AND REC'D PRN PAIN MEDICATION FOR 8/10 PAIN IN LOWER ABD. PT'S AT BEDSIDE ASSISTING PT WITH NEEDS. WCTM. BED LOW. CL IN REACH.
[2016-09-20] VITALS: BP 121/73
--- NOTE | 2016-09-20 01:11 | NUR ---
PT REQ AND REC'D PRN PAIN MEDICATION AT THIS TIME. WCTM.
--- NOTE | 2016-09-20 01:21 | NUR ---
PT FSBS 316. PT REC'D HALF INSULIN ORDERED PER PT REQUEST.
[2016-09-20 04:00] VITALS: BP 131/89
--- NOTE | 2016-09-20 06:29 | NUR ---
PT FSBS 251. PT REC'D HALF INSULIN ORDERED PER PT REQUEST.
[2016-09-20 06:41] LABS: CALC OSMOLALITY 275 mosm/kg (275-300); CALCIUM 8.1 mg/dL (8.5-10.1); CARBON DIOXIDE 30.7 mmol/L (21.0-32.0); CHLORIDE - SERUM 100 mmol/L (98-107); CREATININE - SERUM 0.7 mg/dL (0.6-1.3); GLUCOSE 295 mg/dL (74-106); MAGNESIUM - SERUM 1.8 mg/dL (1.8-2.4); POTASSIUM - SERUM 3.9 mmol/L (3.5-5.1); SODIUM 134 mmol/L (136-145); UREA NITROGEN 4 mg/dL (7-18); eGFR NON AFRICAN AMERICAN > 90 mL/min (90-120)
--- NOTE | 2016-09-20 07:30 | NUR ---
RECIEVED PT DURING WALKING ROUNDS, PT RESTING IN BED WITH COMPLAITS OF PAIN FROM ALLEN CATH. PT HAS DISCAHRGE AROUND END OF PENIS. DOCTOR IS AWARE. ASSESSMENT DONE PER FLOWSHEET. BED IN LOW POSITION AND CALL LIGHT WITHIN REACH. WILL CONTINUE TO MONITOR.
[2016-09-20 08:44] VITALS: BP 123/76
[2016-09-20 13:37] VITALS: BP 117/65
--- NOTE | 2016-09-20 14:10 | NUR ---
REMOVED ALLEN CATH PER ORDER. CHANGED PICC LINE DRESSING PER PROTOCOL USING STERILE TECHNIQUE. BED RETURNED TO LOW POSITION AND CALL LIGHT WITHIN REACH. WILL CONTINUE TO MONITOR.
[2016-09-20 16:35] VITALS: BP 114/62
--- NOTE | 2016-09-20 20:56 | NUR ---
AWAKE,ALERT.NO COMPLAINTS VOICED. IV INFUSING TO LEFT PICC WITHOUT REDNESS OR EDEMA NOTED. NO COMPLAINTS OF NAUSEA OR DIARRHEA. AT BEDSIDE. CL IN REACH
[2016-09-20 21:27] VITALS: BP 105/71
--- NOTE | 2016-09-21 00:40 | NUR ---
RESTING QUIETLY. NO DISTRESS NOTED. CL IN REACH
[2016-09-21 04:00] VITALS: BP 134/90
--- NOTE | 2016-09-21 05:13 | NUR ---
PT IS AWAKE MOVING ABOUT ABOUT THE ROOM FIXING COVERS. EASY RESPIRATIONS AND NO DISTRESS NOTED. BED LOW, RAILS UP X;S 2 WITH THE CALL LIGHT AT HAND.
[2016-09-21 06:16] LABS: CALCIUM 8.1 mg/dL (8.5-10.1); CARBON DIOXIDE 30.8 mmol/L (21.0-32.0); CHLORIDE - SERUM 100 mmol/L (98-107); GLUCOSE 287 mg/dL (74-106); MAGNESIUM - SERUM 2.2 mg/dL (1.8-2.4); PHOSPHOROUS 4.2 mg/dL (2.5-4.9); POTASSIUM - SERUM 4.2 mmol/L (3.5-5.1); SODIUM 138 mmol/L (136-145)
[2016-09-21 06:18] LABS: CALC OSMOLALITY 284 mosm/kg (275-300); CREATININE - SERUM 0.5 mg/dL (0.6-1.3); UREA NITROGEN 10 mg/dL (7-18); eGFR NON AFRICAN AMERICAN > 90 mL/min (90-120)
--- NOTE | 2016-09-21 06:23 | NUR ---
NO CHANGE IN ASSESSMENT. CL IN REACH
--- NOTE | 2016-09-21 07:30 | NUR ---
RECIEVED PT DURING WALKING ROUNDS. PT RESTING IN BED WITH NO COMPLAINTS OF PAIN OR DISCOMFORT AT THIS TIME. PT INFORMED ME OF BLOOD CLOTS FROM HIS RECTUM IN THE BATHROOM FLOOR, I INFORMED HIM THAT I WOULD LET KNOW BUT THIS IS TO BE EXPECTED. ASSESSMENT DONE PER FLOWSHEET. BED IN LOW POSITION AND CALL LIGHT WITHIN REACH. WILL CONTINUE TO MONITOR.
[2016-09-21 07:45] VITALS: BP 117/73
[2016-09-21 08:30] LABS: HEMATOCRIT 39.5 % (42.0-54.0); HEMOGLOBIN 13.3 g/dL (13.5-17.5)
[2016-09-21] MEDS ORDERED: PREDNISONE10 MG PO (08:44)
--- NOTE | 2016-09-21 08:50 | NUR ---
SPOKE WITH ABOUT CLOTS AT THIS TIME, DR. HAMPTON STATED HE WOULD DISCUSS WITH PT AND FAMILY.
--- NOTE | 2016-09-21 09:11 | NUR ---
Patient being discharged today, with at bedside who will drive him home. Patient denies any HH or CM needs.
--- NOTE | 2016-09-21 09:45 | NUR ---
TAPERED TPN TO 40ML/HR AT THIS TIME, WILL CONTINUE TO TAPER DOWN TO PREPARE PT FOR DISCHARGE.
--- NOTE | 2016-09-21 11:52 | NUR ---
TAPERED TPN AT THIS TIME TO 20ML/HR. WILL CONTINUE TO MONITOR.
--- NOTE | 2016-09-21 13:28 | NUR ---
PICC LINE REMOVED BY BROOKE VIVAR. DISCHARGE INSTRUCTIONS GIVEN AND PT DISCHARGED VIA WHEELCHAIR TO HOME WITH A FAMILY MEMBER.
[2016-09-22 06:15] LABS: OVA + PARASITE EXAM Final report (())
== END 2016-09-21 13:31 | disposition home or self-care (01) | DRG 392 ==
LOC: D.MS 12:53
PROVIDERS: Family Medicine; Internal Medicine Gastroenterology; Student in an Organized Health Care Education/Training Program; ADMIT Family Medicine
PROC: 0DBE8ZX Excision of Large Intestine, Via Natural or Artificial Opening Endoscopic, Diagnostic (ICD-10-PCS; principal; 2016-09-11 17:30)
PROC: 02HV33Z Insertion of Infusion Device into Superior Vena Cava, Percutaneous Approach (ICD-10-PCS; 2016-09-15)
PROC: B548ZZA Ultrasonography of Superior Vena Cava, Guidance (ICD-10-PCS; 2016-09-15)
PROC: 0T9B70Z Drainage of Bladder with Drainage Device, Via Natural or Artificial Opening (ICD-10-PCS; 2016-09-15)
DX: K52.9 Noninfective gastroenteritis and colitis, unspecified (principal); C64.2 Malignant neoplasm of left kidney, except renal pelvis; Z86.73 Personal history of transient ischemic attack (TIA), and cerebral infarction without residual deficits; E87.6 Hypokalemia; Z87.891 Personal history of nicotine dependence

== ENCOUNTER 2016-09-26 08:56 | Inpatient (IN) | payer MEDICARE ==
[~2016-09-26] VITALS: Ht 193 cm; Wt 112.5 kg
--- NOTE | ~2016-09-26 | HEMODYNAMI ---
PATIENT:DOUGLAS MONTE MEDICAL RECORD: [id number] : 53 LOCATION:[facility] D.CV ADMISSION DATE: 09/26/16 Generatedon:10/06/20168:57 Patient name: DOUGLAS MONTE Patient #: [id number] SSN: : 1955 Date of study: 10/06/2016 Page: Of Hemodynamic Procedure Report Patient Data Patient Demographics Procedure consent was obtained First Name: DOUGLAS Gender: Male Last Name: LAVELL : 1955 Middle Initial: A Age: 61 year(s) Patient #: [id number] Race: Unknown Additional ID: [id number] Contact details [address]: [address] [place] [address] State: [place] City: [place] Zip code: [address] Admission Admission Data Admission Date: 09/26/2016 Admission Time: 11:05 Room #: [facility] Procedure Procedure Types Cath Procedure Peripheral Cath Diagnostic Procedure Venography IVC/SVC Inferior Venacava Filter Procedure Description Procedure Date Procedure Date: 10/06/2016 Procedure Start Time: 8:30 Procedure Staff Name Function Monty Bean MD Performing Physician Ada Rain RT Scrub Chelsey Campbell RN Nurse [place] Hall RT Monitor Procedure Data Cath Procedure Fluoroscopy Diagnostic fluoroscopy Total fluoroscopy Time: 2.1 time: 2.1 min min Diagnostic fluoroscopy Total fluoroscopy dose: 335 dose: 335 mGy mGy Contrast Material Contrast Material Type Amount (ml) Isovue 370 81 Diagnostic catheters Device Type Used For End Catheter Placement Cook CHG-B 5FR 65CM catheter Procedure Medications Medication Administration Route Dosage Fentanyl I.V. 50 mcg Versed I.V. 1 mg Versed I.V. 1 mg Fentanyl I.V. 50 mcg Hemodynamics Rest Heart Rate: 87 (bpm) Snapshots Pre Cath Intra NCS Post Cath Vital Signs Time Heart Resp SPO2 NIBP (mmHg) Rhythm Pain Sedation Rate (ipm) (%) Status Level (bpm) 8:13:20 89 15 92 114/82(103) NSR 0 (11) 10(A) , No pain 8:18:01 83 12 97 110/90(107) NSR 0 (11) 10(A) , No pain 8:22:03 91 15 91 111/81(103) NSR 0 (11) 10(A) , No pain 8:26:04 82 15 92 127/81(105) NSR 0 (11) 10(A) , No pain 8:30:12 85 14 93 118/82(96) NSR 0 (11) 10(A) , No pain 8:34:14 97 15 91 116/90(102) NSR 0 (11) 10(A) , No pain 8:38:17 88 12 93 113/82(96) NSR 0 (11) 10(A) , No pain 8:42:23 89 14 95 108/74(90) NSR 0 (11) 10(A) , No pain 8:46:25 87 17 94 116/82(103) NSR 0 (11) 10(A) , No pain 8:50:29 89 13 93 121/83(95) NSR 0 (11) 10(A) , No pain 8:54:34 89 13 95 108/80(96) NSR 0 (11) 10(A) , No pain Medications Time Medication Route Dose Verified Delivered Reason Notes Effectivenes s by by 8:30:15 Versed I.V. 1 mg Chelsey Chelsey for Adrian Adrian sedation RN RN 8:30:15 Fentanyl I.V. 50 Chelsey Chelsey for mcg Adrian Adrian sedation RN RN 8:35:25 Versed I.V. 1 mg Chelsey Chelsey for Adrian Adrian sedation RN RN 8:35:33 Fentanyl I.V. 50 Chelsey Chelsey for mcg Adrian Adrian sedation RN caddy packer Log Time Note 8:01:02 Raleigh Hall RT (R) (CV) sent for patient. Start room use. 8:01:08 Time tracking: Regular hours 8:01:13 Plan of Care:Hemodynamics will remain stable., Cardiac rhythm will remain stable., Comfort level will be maintained., Respiratory function will remain adequate., Patient/ family verbilizes understanding of procedure., Procedure tolerated without complication., Recovers from procedure without complications.. 8:01:19 Patient received from CVICU to IR Alert and oriented. Tansferred to table in Supine position. 8::21 Correct patient and procedure confirmed by team. 8::22 Signed procedure consent form obtained from patient. 8::23 ECG and BP/O2 sat monitors applied to patient. 8::23 Full Disclosure recording started 8:01:24 8:01:27 H&P Date Dictated: 10/06/2016 Within 30 days and on chart.. 8:01:28 Pre-procedure instructions explained to patient. 8:01:28 Pre-op teaching completed and patient verbalized understanding. 8:01:32 Family in waiting room. 8:01:33 Patient NPO since Midnight. 8:01:35 Is the patient allergic to Iodine/contrast media? No. 8:01:40 Is patient on blood thinner?No 8:01:43 Patient diabetic? No. 8:01:45 8:01:45 ----Pre-sedation anethsthesia assessment.---- 8:01:49 Previous problem with sedation/anesthesia? No ? 8:01:51 Snore? Yes 8:01:53 Sleep apnea? No 8:01:54 Deviated septum? No 8:01:56 Opens mouth fully? Yes 8:01:59 Sticks out tongue? Yes 8:02:05 Airway obstruction? Yes PE 8:02:10 Dentures? Yes out 8:02:17 Patient pain scale 0/10 no pain. 8:02:21 Use device set IR Diagnostic 8:02:23 Bag Decanter opened to sterile field. 8:02:25 Acist Syringe opened to sterile field. 8:02:25 Acist Hand Control opened to sterile field. 8::26 Acist Manifold opened to sterile field. 8:: Sterile Angiographic Pack opened to sterile field. 8::22 Vital chart was started 8::23 Baseline sample Acquired. 8::27 Rhythm: sinus rhythm 8::32 Sharps counted by scrub and verified by R.N. 8::33 Alarms reviewed by R. N. 8:12:40 IV patent on arrival in right forearm with 0.9% NaCl at [facility]. 8:25:05 Procedure and supply charges have been captured, reviewed, submitted and are correct. 8:27:13 Physician arrived 8:: --------ALL STOP TIME OUT------ 8::14 Final Timeout: patient, procedure, and site verified with staff and physician. All members of the team are in agreement. 8:27:19 Physical assessment completed. ASA score P 3 - A patient with severe systemic disease as per Monty Bean MD. 8::23 Sedation plan: IV Moderate Sedation Versed, Fentanyl 8:30:12 Procedure started. 8:30:15 Versed 1 mg I.V. was administered by Chelsey Campbell RN; for sedation; 8:30:15 Fentanyl 50 mcg I.V. was administered by Chelsey Campbell RN; for sedation; 8:30:17 Local anesthetic to right femoral vein with Lidocaine 1% by Monty Bean MD.INITIAL ACCESS ONLY 8:30:28 TUBING, CONTRAST INJCTN HI PRES opened to sterile field. 8:30:29 Cook DOC .035 guide wire opened to sterile field. 8:30:30 Terumo 5Fr Occidental Sheath opened to sterile field. 8:31:22 A Cook CHG-B 5FR 65CM catheter was advanced over the wire and used for . 8:32:38 PERCUTANEOUS ENTRY 19GA needle opened to sterile field. 8:35:25 Versed 1 mg I.V. was administered by Chelsey Campbell RN; for sedation; 8:35:33 Fentanyl 50 mcg I.V. was administered by Chelsey Campbell RN; for sedation; 8:40:18 Bard ARINA Vena Cava Filter opened to sterile field. 8:42:36 Arina Femoral IVC filter was placed below renal veins. 8:45:30 Procedure ended.(Physican Out) 8:46:10 Fluoroscopy time 02.10 minutes. 8:46:16 Fluoroscopy dose: 335 mGy 8:46:16 Flurop Dose total: 335 8:46:25 Contrast amount:Isovue 370 81ml. 8:46:27 Sharps counted by scrub and verified by R.N. 8:46:32 Insertion/operative site no bleeding no hematoma. 8:46:56 Post-op/insertion site Right Femoral vein dressed using a 4 x 4 and Tegaderm. 8:47:00 Post right femoral vein:stable 8:47:05 Post-procedure physical assessment completed. ASA score P 3 - A patient with severe systemic disease as per Monty Baen MD. 8:47:08 Post procedure rhythm: unchanged. 8:52:04 Post procedure instruction explained to patient.Patient verbalizes understanding. 8:57:05 Report given to CVICU. 8:57:09 Patient transfered to CVICU with Bed. 8:57:51 Vital chart was stopped Device Usage Item Name Manufacture Quantity Catalog Hospital Part Current Minimal Lot# / Number Charge Number Stock Stock Serial# Code Bag Decanter Microtek 1 [id number] [id number] 5 Medical Inc. Acist Acist 1 30661 265433 [id number] [id number] 20 Syringe Medical Systems Inc Acist Hand Acist 1 08003 516521 298835 079517 5 Control Medical Systems Inc Acist Acist 1 94877 437183 845218 162727 5 Manifold Medical Systems Inc Sterile Cardinal 1 [id number] 928008 280604 5 Angiographic Health Pack TUBING, Merit 1 [id number] 070489 120249 410300 5 CONTRAST Medical INJCTN HI PRES Cook DOC Cook Medical 1 [id number] 888721 393548 5 [id number] .035 guide wire Terumo 5Fr Terumo 1 ARM556 422162 294205 852883 40 Occidental Sheath Cook CHG-B Cook Medical 1 [id number] 601800 539157 112740 5 5FR 65CM catheter PERCUTANEOUS Cook Medical 1 [id number] 421180 690139 5 [id number] ENTRY 19GA needle Bard ARINA Bard 1 [id number] 433195 645886 035506 5 [id number] Vena Cava Filter Signature Audit [place] Stage Time Signature Unsigned Intra-Procedure 10/06/2016 [place] 8:57:48 AM Rafael RT (R) (CV) Signatures Monitor : [place] Signature : Rafael RT Date : Time : [address] [place] [address]
--- NOTE | ~2016-09-26 | OP ---
PATIENT NAME: DOUGLAS MONTE MEDICAL RECORD: [id number] :53 [facility]ATION[id number] ADMISSION DATE:09/26/16 SURGEON: VICTORINO HERNANDEZ DO OPERATION DATE: 10/05/16 PROCEDURE: Flexible sigmoidoscopy with biopsies. INDICATION: Suspected ulcerative colitis failing to improve on steroid therapy with continued rectal bleeding. SCOPE: Olympus video pediatric colonoscope. MEDICATIONS: Propofol 140 milligrams IV per anesthesia. ESTIMATED BLOOD LOSS: Less than 5 milliliters. COMPLICATIONS: None. FINDINGS: Informed consent was given. The patient was made comfortable with the above medication. After reaching an adequate level of sedation by slow IV push, the patient was placed on his left side. A digital rectal examination was performed and was normal. The endoscope was then advanced under direct visualization through the rectum and the extent of the procedure was approximately 20 centimeters. There was still some stool indicating the prep was not great, but this was washed away easily. What could be visualized was severe ulcerative colitis with granulation tissue, ulcers, bleeding, and loss of vascular pattern. Approximately 6 biopsies were taken successfully. There was some bleeding from these biopsies. The scope was then withdrawn for multiple factors. The appearances looked improved from the past colonoscopy performed by Dr. Solis a couple of weeks ago. I am also trying to prevent further bleeding or bacterial translocation. Again, the scope was withdrawn. The patient tolerated the procedure well. There were no complications. IMPRESSIONS: Severe ulcerative colitis that is failing to heal at this time to steroid therapy and antibiotics. PLAN/RECOMMENDATIONS: 1. Will increase steroids. 2. Will restart antibiotics. 3. Will try to get approval for biologic therapy in effort to prevent a surgical colectomy. 4. The patient has a newly diagnosed deep venous thrombosis and requires a filter and anticoagulation. 5. Further recommendations to follow tomorrow after the filter is in place. VICTORINO HERNANDEZ DO CC: [id number] DICTATION DATE: 10/05/16 1400 NITRILES LAB TECHNICIAN: CORBIN 10/06/16 1517 ADM IN [facility] [address] [place] [address]
[~2016-09-26 08:56] MED LIST: PREDNISONE10 MG PO
[2016-09-26 09:34] LABS: BASOPHILS 0.1 % (0-2); EOSINOPHILS 0.9 % (0-7); HEMOGLOBIN 16.1 g/dL (13.5-17.5); IMMATURE GRANULOCYTES 0.6 % (0-5); LYMPHOCYTES 16.2 % (15-50); MCV 88.6 fL (80.0-100.0); MEAN PLATELET VOLUME 9.6 fL (7.4-10.4); MONOCYTES 8.6 % (2-11); NEUTROPHILS 73.6 % (40-80); PLATELET COUNT 294 10x3/uL (130-400); RBC 5.19 10x6/uL (4.20-6.10); RDW 14.1 % (11.5-14.5); WBC 16.2 10x3/uL (4.8-10.8)
[2016-09-26 09:46] LABS: ALBUMIN 2.6 g/dL (3.4-5.0); ANION GAP 16.4 mmol/L (8-16); BILIRUBIN - TOTAL 1.31 mg/dL (0.2-1.3); CALCIUM 9.4 mg/dL (8.5-10.1); CARBON DIOXIDE 24.7 mmol/L (21.0-32.0); CREATININE - SERUM 1.2 mg/dL (0.6-1.3); POTASSIUM - SERUM 4.1 mmol/L (3.5-5.1); PROTEIN - SERUM 7.2 g/dL (6.4-8.2)
[2016-09-26 10:27] LABS: APPEARANCE HAZY (CLEAR); BILIRUBIN NEGATIVE (NEGATIVE); COLOR DK YELLOW (YELLOW); GLUCOSE 1000 mg/dL (NEGATIVE); KETONE NEGATIVE (NEGATIVE); LEUKOCYTE ESTERASE NEGATIVE (NEGATIVE); NITRITE NEGATIVE (NEGATIVE); PROTEIN NEGATIVE (NEGATIVE); SPECIFIC GRAVITY 1.005 (1.005-1.020); UROBILINOGEN NORMAL (NORMAL)
[2016-09-26 10:32] LABS: BACTERIA MANY /hpf (NONE SEEN); EPITHELIAL CELLS 0-5 /hpf (0-5); MUCUS <1+ /lpf (NONE SEEN); RED CELLS - URINE 0-5 /hpf (0-5)
--- NOTE | 2016-09-26 12:00 | NUR ---
RECEIVED TO ROOM 2224 FROM ER VIA GURNEY. TRANSFERRED TO BED AND REPOSITIONED FOR COMFORT. SCDs APPLIED TO BLE. URINAL GIVEN TO PATIENT. CALL LIGHT IN REACH. AT BEDSIDE. WILL CONTINUE WITH PLAN OF CARE.
[2016-09-26 12:15] VITALS: BP 106/62
--- NOTE | 2016-09-26 13:53 | NUR ---
MED REC, HISTORY, PHARMACY, EMERGENCY CONTACT, AND PHARMACY REVIEWED. CALL LIGHT IN REACH.
[2016-09-26 15:21] VITALS: BP 107/60; BMI 30.2
--- NOTE | 2016-09-26 15:40 | NUR ---
LEANNA IVP. TELEMETRY PLACED ON PER MD ORDER.
--- NOTE | 2016-09-26 17:09 | NUR ---
FSBS 239. PATIENT ONLY WANTED 4 UNITS. ADMINISTERED SUBQ TO RIGHT ARM. AT BEDSIDE. CALL LIGHT IN REACH.
--- NOTE | 2016-09-26 18:10 | NUR ---
VERY LARGE BM NOTED. RED TINT TO BM BUT IT WASN'T BRIGHT RED. UNABLE TO MAKE IT BR IN TIME. PARTIAL BED BATH GIVEN. GOWN CHANGED. BR CLEANED. NO OTHER CHANGES IN INITIAL ASSESSMSENT AT THIS TIME. CALL LIGHT IN REACH. AT BEDSIDE. WILL CONTINUE WITH PLAN OF CARE.
[2016-09-26 19:00] VITALS: BP 99/61
--- NOTE | 2016-09-27 02:52 | NUR ---
PATIENT RESTING WITH EYES CLOSED AND NO VISIBLE SIGNS OF DISTRESS. BED IN LOWEST POSITION AND CALL LIGHT WITHIN REACH.
[2016-09-27 04:00] VITALS: BP 100/63
[2016-09-27 06:34] LABS: BASOPHILS 0.1 % (0-2); EOSINOPHILS 1.9 % (0-7); HEMATOCRIT 38.8 % (42.0-54.0); IMMATURE GRANULOCYTES 0.6 % (0-5); LYMPHOCYTES 20.1 % (15-50); MCH 29.7 pg (26.0-34.0); MCHC 33.5 g/dL (31.0-37.0); MCV 88.6 fL (80.0-100.0); MEAN PLATELET VOLUME 9.1 fL (7.4-10.4); MONOCYTES 9.1 % (2-11); NEUTROPHILS 68.2 % (40-80); RBC 4.38 10x6/uL (4.20-6.10); RDW 14.1 % (11.5-14.5)
[2016-09-27 06:39] LABS: PLATELET COUNT 190 10x3/uL (130-400); WBC 8.5 10x3/uL (4.8-10.8)
[2016-09-27 06:55] LABS: CALC OSMOLALITY 274 mosm/kg (275-300); CALCIUM 8.1 mg/dL (8.5-10.1); CHLORIDE - SERUM 101 mmol/L (98-107); GLUCOSE 158 mg/dL (74-106); POTASSIUM - SERUM 3.5 mmol/L (3.5-5.1); SODIUM 136 mmol/L (136-145); UREA NITROGEN 12 mg/dL (7-18); eGFR NON AFRICAN AMERICAN 80 mL/min (90-120)
--- NOTE | 2016-09-27 07:30 | NUR ---
RECIVEVED PT DURING WALKING ROUNDS. PT RESTING IN BED WITH COMPLAINTS OF PAIN OF A 6 IN THE ABDOMEN AT THIS TIME. NO MEDICATION REQUESTED. ASSESSMENT DONE PER FLOWSHEET. BED IN LOW POSITION AND CALL LIGHT WITHIN REACH.
--- NOTE | 2016-09-27 07:34 | NUR ---
Patient Name: DOUGLAS MONTE Admission Status: ER Accout number: [id number] Admission Date: 09-26-2016 : 1955 Admission Diagnosis: Attending: CRISSY Current LOS: 1 Anticipated DC Date: 10-02-2016 Planned Disposition: Home Primary Insurance: [employer] Discharge Planning Comments: CM MET WITH PATIENT AND (DWAINE) REGARDING D/C NEEDS AND PLANS. PATIENTS STATED THERE ARE 3 STEPS WITH RAILS OR A RAMP TO ENTER HOME AND NO STAIRS INSIDE HOME. PATIENTS WILL DRIVE HIM HOME AT DISCHARGE. PATIENT IS INDEPENDENT WITH HIS CARE AND HAS A WALKER, CANE, AND WHEELCHAIR AT HOME IF NEEDED. PATIENTS PCP IS DR. HAMPTON AND PHARMACY IS [facility] IN [facility]. PATIENT AND REFUSED HOME HEALTH AT THIS TIME. CM WILL CONTINUE TO FOLLOW PATIENT WITH D/C NEEDS AND PLANS. PCP DR. MEMO SANDOVAL IN [facility]- [phone] DWAINE () [phone] Cloth Washer: Mercedez Chauhan Is the patient Alert and Oriented? Yes 0 * How many steps to enter\exit or inside your home? 3/RAILS 0 * PCP DR. HAMPTON 0 * Pharmacy [facility]. 0 * Preadmission Environment Home with Family 0 * ADLs Independent 0 * Equipment Cane Walker Wheelchair 0 * List name and contact numbers for known caregivers / representatives who currently or will assist patient after discharge: DWAINE (SPOUSE) [phone] 0 * Community resources currently utilized None 0 * Additional services required to return to the preadmission environment? Yes 0 * Can the patient safely return to the preadmission environment? Yes 0 * Has this patient been hospitalized within the prior 30 days at any hospital? Yes 0 Grand Total: 0
--- NOTE | 2016-09-27 08:45 | NUR ---
MEDICATION GIVEN PER ORDER AT THIS TIME. ASSITSED PT TO CHAIR. PT ATTEMPTING TO DRINK ORAL CONTRAST. WILL CONTINUE TO MONITOR.
[2016-09-27 08:51] VITALS: BP 107/68
[2016-09-27 10:52] VITALS: Ht 193 cm; Wt 112.5 kg
[2016-09-27 13:04] VITALS: BP 102/59
[2016-09-27 16:38] VITALS: BP 96/57
--- NOTE | 2016-09-27 19:00 | NUR ---
BEDSIDE REPORT RECEIVED AND CARE OF PT ASSUMED. PT LYING ON LEFT SIDE WITH EYES CLOSED. IV IN LEFT FA PATENT WITH NS INFUSING AT 125 ML / HR. WILL MONITOR FOR NEEDS.
[2016-09-27 20:00] VITALS: BP 100/52
--- NOTE | 2016-09-27 20:08 | NUR ---
GAVE ZOFRAN 4 MG IVP PER REQUEST FOR NAUSEA. WILL MONITOR FOR EFFECTIVENESS.
--- NOTE | 2016-09-27 21:53 | NUR ---
HS MEDICATIONS GIVEN TO INCLUDE DILAUDID 1 MG PER PRN ORDER, PER REQUEST FOR PAIN AT LEVEL 7/10 IN UPPER ABDOMEN. WILL MONITOR FOR EFFECTIVENESS.
[2016-09-28] VITALS: BP 98/54
--- NOTE | 2016-09-28 00:42 | NUR ---
PT RESTING IN SUPINE POSITION WITH EYES CLOSED AND UNLABORED BREATHING. SIDE RAILS UP X2 FOR SAFETY.
[2016-09-28 04:00] VITALS: BP 104/62
--- NOTE | 2016-09-28 07:15 | NUR ---
REPORT RECEIVED FROM BARREL ASSEMBLER HELPER NURSE. CALL LIGHT IN REACH.
--- NOTE | 2016-09-28 08:42 | NUR ---
ASSESSMENT COMPLETED. AM MEDS ADMINISTERED. REFUSES SCDs AT THIS TIME. DR. HAMPTON IN ROOM SPEAKING WITH PATIENT AND . DISPOSABLE BED ALARM ON. CALL LIGHT IN REACH. WILL CONTINUE WITH PLAN OF CARE.
[2016-09-28 09:27] VITALS: BP 98/65
--- NOTE | 2016-09-28 10:16 | NUR ---
LYING IN BED WITH EYES CLOSED. RESP EVEN AND UNLABORED. AT BEDSIDE. CALL LIGHT IN REACH.
--- NOTE | 2016-09-28 11:57 | NUR ---
BLOOD SUGAR 252. ONLY WANTED 5 UNITS OF REGULAR INSULIN INSTEAD OF 5 UNITS. FLAGYL IVPB. CALL LIGHT IN REACH.
--- NOTE | 2016-09-28 12:40 | NUR ---
DR. HERNANDEZ IN ROOM SPEAKING WITH PATIENT AND .
[2016-09-28 13:20] VITALS: BP 99/57
--- NOTE | 2016-09-28 14:14 | NUR ---
SOLU-MEDROL 40 MG SIVP. EXPLAINED TO PATIENT AND THAT IT WOULD BE [facility] TO DO FULL DOSE OF INSULIN INSTEAD OF HALF BECAUSE THE STEROIDS AN INFECTION WILL BOTH MAKE THE GLUCOSE INCREASE WHICH WILL BE HARD ON HIS LIVER IF WE DON'T CONTROL IT.
--- NOTE | 2016-09-28 15:32 | NUR ---
SITTING IN CHAIR AT BEDSIDE. NO NEEDS AT PRESENT.
[2016-09-28 16:40] VITALS: BP 100/65
--- NOTE | 2016-09-28 17:11 | NUR ---
10 UNITS OF REGULAR INSULIN SUBQ TO RIGHT ARM FOR BLOOD SUGAR OF 264. CALL LIGHT IN REACH. IN ROOM.
--- NOTE | 2016-09-28 18:01 | NUR ---
NO CHANGES IN INITIAL ASSESSMENT. REFUSES SCDs. DISPOSABLE ALARM ON. IN ROOM. WILL CONTINUE WITH PLAN OF CARE.
--- NOTE | 2016-09-28 19:00 | NUR ---
BEDSIDE REPORT RECEIVED AND CARE OF PT ASSUMED. PT LYING IN SEMI PEREZ'S POSITION VISITING WITH SPOUSE. IV IN LEFT FA PATENT WITH NS INFUSING AT 125 ML / HR. TELEMETRY IN USE AND PT READING 74 SR AT THIS ASSESSMENT. WILL MONITOR CLOSELY FOR NEEDS.
[2016-09-28 20:00] VITALS: BP 106/69
--- NOTE | 2016-09-28 21:15 | NUR ---
HS MEDICATIONS GIVEN TO INCLUDE DILAUDID 1 MG IVP PER REQUEST FOR PAIN. FSBS 263 THIS CHECK REQUIRING COVERAGE WITH 10 UNITS OF INSULIN PER SLIDING SCALE. WILL CONTINUE TO MONITOR CLOSELY FOR NEEDS. IS AT BEDSIDE.
[2016-09-29] VITALS: BP 87/51
--- NOTE | 2016-09-29 00:30 | NUR ---
PT RESTING QUIETLY IN SUPINE POSITION WITH EASY RESPIRATIONS. BP RUNNING LOW AT THIS CHECK...WILL CONTINUE TO MONITOR CLOSELY.
[2016-09-29 04:00] VITALS: BP 89/52
--- NOTE | 2016-09-29 07:35 | NUR ---
ASSESSMENT COMPLETE. IV TO L FA PATENT. NS INFUSING AT 125 CC/HR VIA PUMP. DIEING OUT MACHINE OPERATOR SHOWING SR 71 PER TECH. FAMILY AT BEDSIDE. DENIES ANY NEEDS AT THIS TIME.
[2016-09-29 07:59] VITALS: BP 91/53
--- NOTE | 2016-09-29 11:30 | NUR ---
IV TO L FA LEAKING. IV REMOVED. CATHETER TIP INTACT. IV SITED TO L HAND WITH 20 GUAGE X 1 ATTEMPT BY JOANNA MAN RN.
[2016-09-29 12:00] VITALS: BP 107/67
--- NOTE | 2016-09-29 15:15 | NUR ---
Nutrition Follow Up: Pt is eating 56% meal avg on a full liquid diet. Noted per chart diet to advance today. Spoke with nursing who reported that diet was to be GI Soft [place]. +BM 09/29/16. Wt stable. Labs reviewed - Glucose elevated. Meds noted including Solu-Medrol, Flagyl, Humulin. Will change diet to GI Soft [place]. RD will continue to monitor pt progress.
[2016-09-29 16:12] VITALS: BP 104/63
--- NOTE | 2016-09-29 18:04 | NUR ---
SITTING UP IN CHAIR. AT BEDSIDE. TOLERATED BLAND DIET.
[2016-09-29 19:00] VITALS: BP 125/75
[2016-09-30 04:00] VITALS: BP 108/72
--- NOTE | 2016-09-30 07:54 | NUR ---
SITTING UP IN CHAIR, AT BEDSIDE, DENIES NEEDS, WILL CONTINUE TO MONITOR
[2016-09-30 08:18] VITALS: BP 112/65
--- NOTE | 2016-09-30 11:00 | NUR ---
PATIENT UP AMBULATING IN HALLWAY WITH FAMILY. NO SIGNS OF DISTRESS NOTED.
[2016-09-30 12:24] VITALS: BP 98/60
[2016-09-30 16:04] VITALS: BP 86/55
[2016-09-30 20:00] VITALS: BP 118/68
[2016-10-01 03:54] VITALS: BP 107/72
[2016-10-01 05:35] LABS: BASOPHILS 0.2 % (0-2); EOSINOPHILS 0 % (0-7); HEMATOCRIT 34.4 % (42.0-54.0); HEMOGLOBIN 11.4 g/dL (13.5-17.5); IMMATURE GRANULOCYTES 1.4 % (0-5); LYMPHOCYTES 14.8 % (15-50); MCH 29.8 pg (26.0-34.0); MCHC 33.1 g/dL (31.0-37.0); MCV 89.8 fL (80.0-100.0); MEAN PLATELET VOLUME 9.1 fL (7.4-10.4); MONOCYTES 13.8 % (2-11); NEUTROPHILS 69.8 % (40-80); PLATELET COUNT 170 10x3/uL (130-400); RBC 3.83 10x6/uL (4.20-6.10); RDW 14.3 % (11.5-14.5); WBC 6.6 10x3/uL (4.8-10.8)
[2016-10-01 06:03] LABS: ALKALINE PHOSPHATASE 51 U/L (46-116); ALT (SGPT) 10 U/L (10-68); CALC OSMOLALITY 282 mosm/kg (275-300); CALCIUM 8.4 mg/dL (8.5-10.1); CARBON DIOXIDE 31.4 mmol/L (21.0-32.0); CHLORIDE - SERUM 105 mmol/L (98-107); CREATININE - SERUM 0.8 mg/dL (0.6-1.3); GLUCOSE 188 mg/dL (74-106); PROTEIN - SERUM 5.2 g/dL (6.4-8.2); SODIUM 140 mmol/L (136-145); UREA NITROGEN 11 mg/dL (7-18); eGFR NON AFRICAN AMERICAN > 90 mL/min (90-120)
--- NOTE | 2016-10-01 07:38 | NUR ---
UP IN CHAIR, AT BEDSIDE, CALL LIGHT IN REACH, DENIES NEEDS, A&O, WILL CONTINUE TO MONITOR
[2016-10-01 08:59] VITALS: BP 122/90
--- NOTE | 2016-10-01 10:35 | NUR ---
AWAKE AND ALERT AT THIS TIME. IV TO LEFT HAND PATENT WITH NO S/S OF INFILTRATION PRESENT. PROVIDED PT WITH MILK AT HIS REQUEST. DENIES NEEDS AT THIS TIME. CALL LIGHT IN REACH, WILL CONTINUE WITH PLAN OF CARE.
[2016-10-01 11:23] VITALS: BP 101/60
[2016-10-01 15:11] VITALS: BP 100/58
[2016-10-01 20:00] VITALS: BP 119/66
[2016-10-02 04:00] VITALS: BP 125/83
[2016-10-02 07:29] VITALS: BP 120/75
--- NOTE | 2016-10-02 07:45 | NUR ---
ASSESSMENT COMPLETE.IV TO L HAND PATENT. NS INFUSING AT 30 CC/HR. REPORTS HAVING LOOSE,BLOODY STOOLS. AT BEDSIDE.
[2016-10-02 11:34] VITALS: BP 107/63
--- NOTE | 2016-10-02 12:42 | NUR ---
NUTRITION MONITORING & EVAL CHART REVIEWED, 100% INTAKE BLAND/SOFT DIET AT BREAKFAST. WILL CONTINUE TO MONITOR PO INTAKE. RD FOLLOWING
--- NOTE | 2016-10-02 14:49 | NUR ---
NOT FEELING SINCE LUNCH TODAY. COMPLAINING OF PAIN AND NAUSEA. DILAUID AND ZOFRAN GIVEN. AT BEDSIDE.
[2016-10-02 15:19] VITALS: BP 91/62
--- NOTE | 2016-10-02 17:00 | NUR ---
SITTING UP IN CHAIR. VISITING WITH FAMILY. DENIES ANY NEEDS AT PRESENT.
[2016-10-02 20:00] VITALS: BP 99/64
--- NOTE | 2016-10-02 20:00 | NUR ---
ASSESSMENT PER FLOWSHEET. IV PATENT LEFT HAND OF NS AT 30CC'S/HR SITE CLEAR. AT BEDSIDE. SR UP X2 CALL LIGHT WITHIN REACH. REFUSES TO WEAR SCD'S.
--- NOTE | 2016-10-02 21:00 | NUR ---
MEDS GIVEN PER MAR. C/O PAIN LOWER ABDOMEN RATES PAIN LEVEL #7 DFILAUDID 1MG IVP GIVEN FOR PAIN CONTROL.
--- NOTE | 2016-10-02 21:15 | NUR ---
INQD=953. REGULAR INSULIN 12 UNITS GIVEN SUBC RT ARM PER S/S.
--- NOTE | 2016-10-02 23:33 | NUR ---
RESTING QUIETLY AT THIS TIME DENIES NEEDS.
--- NOTE | 2016-10-03 02:44 | NUR ---
EYES CLOSED RESPIRATIONS WITH EASE AND UNLABORED.
[2016-10-03 03:09] LABS: OVA + PARASITE EXAM Final report (())
[2016-10-03 04:00] VITALS: BP 112/69
--- NOTE | 2016-10-03 04:22 | NUR ---
MED GIVEN PER MAR.
--- NOTE | 2016-10-03 06:34 | NUR ---
BMUD=479 REGULAR INSULIN 8 UNITS GIVEN SUBC PER S/S
--- NOTE | 2016-10-03 08:30 | NUR ---
ASSESSMENT COMPLETE. IV TO L HAND PATENT. NS INFUSING AT 30 CC/HR VIA PUMP. COMPLAINING OF ABDOMINAL PAIN. AT BEDSIDE.
[2016-10-03 09:05] VITALS: BP 121/81
[2016-10-03 11:37] VITALS: BP 103/58
--- NOTE | 2016-10-03 12:00 | NUR ---
NO CHANGES NOTED AT PRESENT.
--- NOTE | 2016-10-03 16:40 | NUR ---
BLOOD SUGAR 410 PER GLUCOMETER. STAT GLUCOSE ORDERED.
--- NOTE | 2016-10-03 17:40 | NUR ---
COMPLAINING OF ABDOMINAL PAIN. DILAUID GIVEN SLOW IVP.
[2016-10-03 20:00] VITALS: BP 105/61
--- NOTE | 2016-10-03 20:00 | NUR ---
ASSESSMENT PER FLOWSHEET. IV PATENT LEFT HAND OF NS AT 30CC'S/HR SITE CLEAR. AT BEDSIDE.
--- NOTE | 2016-10-03 21:42 | NUR ---
MEDS GIVEN PER MAY. ALLK=466 12 UNITS REGULAR INSULIN GIVEN SUBC RT ARM PER S/S. C/O LOWER ABDOMINAL PAIN RAES PAIN LEVEL #6. DILAUDID 1MG IVP GIVEN FOR PAIN CONTROL.
--- NOTE | 2016-10-04 | NUR ---
EYES CLOSED RESPIRATIONS WITH EASE AND UNLABORED.
--- NOTE | 2016-10-04 01:45 | NUR ---
UP AD CITLALI TO BR VOIDED AND HAD LOOSE BROWN STOOL.
--- NOTE | 2016-10-04 01:55 | NUR ---
BACK UP AD CITLALI TO BR HAD BLLOD NOTED IN TOILET WATER. VERY SMALL LOOSE BROWN STOOL.
--- NOTE | 2016-10-04 03:47 | NUR ---
EYES CLOSED RESPIRATIONS WITH EASE AND UNLABORED.
[2016-10-04 04:00] VITALS: BP 110/58
--- NOTE | 2016-10-04 06:28 | NUR ---
BYJR=250.NO COVERAGE C/O ABDOMINAL PAIN RATES PAIN #8. DILAUDID 1MG IVP GIVEN FOR PAIN CONTROL.
--- NOTE | 2016-10-04 07:30 | NUR ---
RECIEVED PT DURING WALKING ROUNDS. PT RESTING IN BED WITH COMPLAINTS OF PAIN OF A 6 ON A SCALE OF 1-10. MEDICATION TO BE GIVEN PER ORDER. ASSESSMENT DONE PER FLOWSHEET. BED IN LOW POSITION AND CALL LIGHT WITHIN REACH. WILL CONTINUE TO MONITOR.
[2016-10-04 08:10] VITALS: BP 116/71
--- NOTE | 2016-10-04 10:05 | NUR ---
PHONE CALL PLACED TO DR. HAMPTON AT THIS TIME DUE TO PT COMPLAINTS ABOUT CRAMPING IN LEFT CALF, NO DISCOLOARTION OR SWELLING NOTED. STATED HE WOULD CHECK ON PT AND PT COMPLAINT WHEN HE ROUNDS. INFORMED PT AND FAMILY AT THIS TIME. WILL CONTINUE TO MONITOR.
[2016-10-04 12:51] VITALS: BP 104/60
[2016-10-04 16:30] VITALS: BP 97/60
[2016-10-04 20:00] VITALS: BP 119/64
--- NOTE | 2016-10-04 20:30 | NUR ---
ASSESSMENT PER FLOWSHEET. IV PATENT LEFT HAND OF NS AT 30CC'S/HR SITE CLEAR. IN ROOM GOLYTELY PREP STARTED. PT TO DRINK 1/2 CONTAINER TONIGHT THEN START AT 0800 THE SECOND 1/2.
--- NOTE | 2016-10-04 20:45 | NUR ---
MEDS GIVEN PER MAY. C/O PAIN IN ABDOMEN. DILAUDID 1MG IVP GIVEN FOR PAIN CONTROL. UP TO BR HAVING WATERY STOOLS. BEBY=034 8 UNITS REGULAR INSULIN GIVEN SUBC PER S/S TO RT ARM.
--- NOTE | 2016-10-05 00:16 | NUR ---
DR. HAMPTON VISITS ORDERS REC'D PT TO GET INFERIOR VENA CAVA FILTER IN AM. FOR DVT IN LEFT THIGH AREA.
--- NOTE | 2016-10-05 01:34 | NUR ---
PT SLEEPING DENIES NEED AT THIS TIME.
[2016-10-05 04:00] VITALS: BP 112/66
[2016-10-05 05:38] LABS: BASOPHILS 0.2 % (0-2); EOSINOPHILS 0 % (0-7); HEMATOCRIT 36.8 % (42.0-54.0); HEMOGLOBIN 12.4 g/dL (13.5-17.5); IMMATURE GRANULOCYTES 1.1 % (0-5); LYMPHOCYTES 10.6 % (15-50); MCH 30.3 pg (26.0-34.0); MCHC 33.7 g/dL (31.0-37.0); MEAN PLATELET VOLUME 9.4 fL (7.4-10.4); MONOCYTES 5.3 % (2-11); NEUTROPHILS 82.8 % (40-80); RBC 4.09 10x6/uL (4.20-6.10); RDW 14.7 % (11.5-14.5); WBC 6.2 10x3/uL (4.8-10.8)
[2016-10-05 05:39] LABS: PLATELET COUNT 110 10x3/uL (130-400)
[2016-10-05 05:54] LABS: ALKALINE PHOSPHATASE 52 U/L (46-116); ALT (SGPT) 13 U/L (10-68); CALC OSMOLALITY 281 mosm/kg (275-300); CALCIUM 8.1 mg/dL (8.5-10.1); CARBON DIOXIDE 26.6 mmol/L (21.0-32.0); CHLORIDE - SERUM 102 mmol/L (98-107); CREATININE - SERUM 0.6 mg/dL (0.6-1.3); POTASSIUM - SERUM 4.1 mmol/L (3.5-5.1); PROTEIN - SERUM 5.5 g/dL (6.4-8.2); SODIUM 137 mmol/L (136-145); UREA NITROGEN 14 mg/dL (7-18); eGFR NON AFRICAN AMERICAN > 90 mL/min (90-120)
[2016-10-05 05:59] LABS: GLUCOSE 217 mg/dL (74-106)
--- NOTE | 2016-10-05 07:30 | NUR ---
RECIEVED PT DURING WALKING ROUNDS. PT RESTING IN BED WITH COMPLAINTS OF PAIN OF A 5 ON A SCALE OF 1-10. MEDICATION ADMINISTERED PER ORDER. ASSESSMENT DONE PER FLOWSHEET. BED IN LOW POSITION AND CALL LIGHT WITHIN REACH. WILL CONTINUE TO MONITOR.
[2016-10-05 08:17] LABS: APTT 27.4 SECONDS (22.8-39.4); INR 1.08 (0.85-1.17); PROTIME 13.8 SECONDS (11.6-15.0)
[2016-10-05 08:25] VITALS: BP 107/66
--- NOTE | 2016-10-05 08:40 | NUR ---
ADMINISTERED ZOFRAN PER ORDER AT THIS TIME DUE TO PT VOMITTING. PT UNABLE TO TOLERATE THE REST OF HIS GI- PREP. WILL INFORM GI LAB. WILL CONTINUE TO MONITOR.
--- NOTE | 2016-10-05 11:30 | NUR ---
SPOKE WITH SCOT NAYLOR AT THIS TIME ABOUT PT PROCEDURE. DUE TO PT BEING UNABLE TO FINISH PREP THE PROCEDURE WILL BE DONE AT APPROX 1530 TODAY. SPOKE WITH JAYCOB IN SPECIALS AND INFORMED PT THAT IVC FILTER WOULD BE PLACED TOMORROW AM. PT AGREES WITH POC. WILL CONTINUE TO MONITOR.
[2016-10-05 12:33] VITALS: BP 102/62
--- NOTE | 2016-10-05 16:27 | NUR ---
CM REASSESSMENT NOTE: CM REC. ORDER FROM DR. HERNANDEZ REQUESTING APPROVAL FOR HUMIRA INJECTION FOR PATIENT. JOANNA SENPRINCIPAL JAVA DEVELOPER CALLED KIT IN PHARMACY AND COST IS [phone] FOR 160MG SC X 1. CM CALLED FOR BATOOL IN ADM. AND SPOKE WITH WEI (CM MOUNTING MACHINE OPERATOR). WEI STATED SHE WILL CHECK ON THIS AND WILL LET CM KNOW BUT IT COULD BE TOMORROW.
--- NOTE | 2016-10-05 17:18 | NUR ---
CM REASSESSMENT NOTE: CM WILL CALL SCOTT GONG IN AM TO CHECK APPROVAL FOR DRUG AFTER DISCHARGE.
[2016-10-05 20:00] VITALS: BP 89/45
[2016-10-06] VITALS (25 sets, daily range): BP systolic 91–128; BP diastolic 52–95
--- NOTE | 2016-10-06 00:11 | NUR ---
PATIENT SLEEPING ON RIGHT SIDE WITH 3 SIDE RAILS UP, BED IN LOWEST LOCKED POSITION, CALL LIGHT WITHIN REACH.
--- NOTE | 2016-10-06 02:23 | NUR ---
PATIENT CALLED THE NURSE FOR C/O CHEST PAIN. FIRST OBSERVATION OF THE PATIENT HE HAD COOL CLAMY HANDS AND FEET WITH RED CHEST AND FACE. ANXIETY LEVEL WAS UP. HE DESCRIBED THE PAIN DULL AND CRAMPING. HIS HANDS WERE PLACED OVER HIS HEART. A STAT EKG WAS ORDERED AND THE ICU WAS CALLED TO COME AND CHECK THE PATIENT. EKG STATED THAT HE WAS SINUS TACH, WITH ST ELEVATION, AND AN ABNORMAL EKG. REFUSE LABORER, LISY, GOT THE EKG AND WANTED TO KEEP LOOKING AFTER IT. 1MG IV DILADID AND 125MG SOLUMEDROL WAS GIVEN. PATIENT PLACED ON 1LPM O2 VIA NASAL CANULA FOR HIS SPO2 READING 88% ON ROOM AIR WHEN THE FIRST SET OF VITAL SIGNS WERE TAKEN. WILL REASSESS FOR CHANGES.
--- NOTE | 2016-10-06 03:07 | NUR ---
GROUP ACCOUNT DIRECTOR, LISY, NOTIFIED THAT THE CHEST PAIN HAD DECREASED TO A 1/10 DULL PRESSURE. SHE WAS ALSO NOTIFIED THAT HIS SPO2 HAD DECREASED FROM 88% TO 84% ON 1LPM THEN HE WAS INCREASED TO 2 LPM. LISY INFORMED TO WAIT ON CALLING DR HAMPTON.
--- NOTE | 2016-10-06 03:22 | NUR ---
HOUSE SUPRVISOR, LISY, WAS NOTIFED THAT PATIENT WAS INCREASED 4LPM 02 VIA NASAL CANULA DUE TO SPO2 AT 97%. SHE STATED THAT SHE WAS TRYING TO GET A HOLD OF THE ICU NURSE FOR THE SITUATION. ANJELICA COX HAS PAGED THE MD. LISY HAS NOT RETURNED THE EKG
--- NOTE | 2016-10-06 03:29 | NUR ---
PATIENT STATED "I STARTED HAVING CHEST PAIN ABOUT AN HOUR AGO, IT WOKE ME FROM MY SLEEP." PATIENT POINTED TO THE LEFT UPPER CHEST. PATIENT STATED "IT WAS A SHARP PAIN AND PRETTY FILLER FEEDER BUT NOW IT IS NOT BAD JUST A MILD DULL PAIN. I HAD A PE IN THE PAST AND THAT PAIN I FELT WAS THE SAME PAIN I HAD BEFORE." RESPIRATIONS ARE EVEN AND UNLABORED ON ROOM AIR. PATIENT DOES NOT APPEAR TO BE IN DISTRESS AT THIS TIME.
--- NOTE | 2016-10-06 03:42 | NUR ---
WENT TO CHECK ON PATIENT, HIS COLOR DUSKY. RESPIRATIONS ARE DEEPER AND MORE RAPID. OXYGEN 85% ON 4L/MIN, INCREASED TO 6L/MIN, STAYED WITH PATIENT UNTIL HIS SATURATION 91%.
[2016-10-06 04:01] LABS: BASOPHILS 0.1 % (0-2); EOSINOPHILS 0 % (0-7); HEMATOCRIT 38.2 % (42.0-54.0); HEMOGLOBIN 12.8 g/dL (13.5-17.5); MCH 30.5 pg (26.0-34.0); MCHC 33.5 g/dL (31.0-37.0); MEAN PLATELET VOLUME 8.9 fL (7.4-10.4); MONOCYTES 7.8 % (2-11); NEUTROPHILS 83.1 % (40-80); PLATELET COUNT 89 10x3/uL (130-400); WBC 7.2 10x3/uL (4.8-10.8)
--- NOTE | 2016-10-06 04:06 | NUR ---
NEW 20G PIV PLACED INTO RIGHT DISTAL FOREARM FOR CT CONTRAST. RADIOLOGY IN ROOM TO TAKE PATIENT FOR IMAGES
[2016-10-06 04:11] LABS: CALCIUM 8.4 mg/dL (8.5-10.1); CARBON DIOXIDE 29.8 mmol/L (21.0-32.0); CHLORIDE - SERUM 104 mmol/L (98-107); POTASSIUM - SERUM 4.6 mmol/L (3.5-5.1); SODIUM 139 mmol/L (136-145); eGFR NON AFRICAN AMERICAN 80 mL/min (90-120)
[2016-10-06 04:12] LABS: CALC OSMOLALITY 292 mosm/kg (275-300); GLUCOSE 331 mg/dL (74-106); UREA NITROGEN 18 mg/dL (7-18)
[2016-10-06 04:21] LABS: INR 1.2 (0.85-1.17); PROTIME 15.1 SECONDS (11.6-15.0)
--- NOTE | 2016-10-06 04:33 | NUR ---
PATIENT RETURNED FROM CT. NO COMPLAINTS AT THIS TIME. ON 6LPM 02 VIA NC
[2016-10-06 04:37] LABS: D-DIMER-QUANTITATIVE 12.88 ug/mLFEU (0.20-0.54)
--- NOTE | 2016-10-06 04:50 | NUR ---
RADIOLOGY INFORMED NURSE THAT HOTEL DINING ROOM CASHIER GOT THE REPORT AND SHE REPORTED THAT CV[facility] HAS THE REPORT.
--- NOTE | 2016-10-06 05:01 | NUR ---
DR. IVEY NOTIFIED OF NEW LAB AND RADIOLOGY REPORTS, TRANSFERRING PT TO CV 07, NO OTHER NEW ORDERS.
--- NOTE | 2016-10-06 05:10 | NUR ---
RECEIVED PATIENT FROM FLOOR DUE TO PATIENT HAVING A PE. PATIENT TRANSFERRED TO BED WITH MAXIMAL ASSISST, PUT ON MONITORS. VSS, HR OF 92BPM WITH NSR. BP 116/83. O2 SAT 93% ON 3L NC. LUNG SOUNDS CLEAR, DIMINISHED IN BASES OF BOTH LUNGS. PATIENT DENYING CHEST PAIN AT THIS TIME AND HAS NO SIGNS OF DISTRESS. RR EVEN AND NONLABORED. BOWEL SOUNDS ACTIVE, DID REPORT HAVING BLOODY STOOLS DURING HOSPITAL STAY. PERIPHERAL PULSES +2. BROUGHT BACK TO BEDSIDE AND UPDATE GIVEN. PATIENT DENIES FURTHER NEED AT THIS TIME AND STATES HE IS COMFORTABLE. WILL MONITOR.
--- NOTE | 2016-10-06 06:00 | NUR ---
AT BEDSIDE, PATIENT DENIES NEED.
--- NOTE | 2016-10-06 07:00 | NUR ---
PT REPORT REC'D, PT CARE ASSUMED. PT AAOX4 LAYING IN BED, NO C/O PAIN, VSS, 4LNC. RIGHT FOREARM PIV WITH NS INFUSING, NO SIGNS OF INFILTRATION, DRESSING CDI. LEFT HAND PIV S/L'ED, DRESSING CDI. BEDSIDE URINAL NEEDED. PTS AT THE BEDSIDE, ALL QUESTIONS ANSWERED. SHIFT ASSESSMENT COMPLETED, SEE FLOW SHEET. ROOM FREE OF CLUTTER, CALL LIGHT IN REACH, WILL CONTINUE TO MONITOR PT.
--- NOTE | 2016-10-06 07:10 | NUR ---
DR. SAMIR JEFFRIES
--- NOTE | 2016-10-06 07:30 | NUR ---
DR. DAWSON REPAGED.
--- NOTE | 2016-10-06 07:55 | NUR ---
PT TRANSFERRED VIA BED TO IR, PTS FOLLOWING TO GO TO WAITING ROOM.
--- NOTE | 2016-10-06 07:55 | NUR ---
PT TRANSFERRED VIA BED TO IR WITH CINDI PTS TO FOLLOW TO WAITING ROOM.
--- NOTE | 2016-10-06 09:00 | NUR ---
REC'D PT FROM IR, PT AAOX4, NO C/O PAIN, RIGHT GROIN INCISION, DRESSING CDI, INSTURCTED PT TO LAY FLAT, NOT TO SIT UP. WILL CONTINUE TO MONITOR PT.
--- NOTE | 2016-10-06 10:55 | NUR ---
Nutrition Follow Up: Pt is NPO for procedure; prior to this pt was on a GI [place] diet and was eating 100% meal avg. +BM 10/05/16. Wt stable. Labs reviewed - Glucose elevated. Meds noted including Prednisone, Humulin. Rec resuming diet when medically feasible. RD will continue to monitor pt progress.
--- NOTE | 2016-10-06 11:00 | NUR ---
PT RESTING WITH EYES CLOSED,NO C/O PAIN, VSS, REASSESSMENT COMPLETED, SEE FLOW SHEET. ROOM FREE OF CLUTTER, CALL LIGHT IN REACH, WILL CONTINUE TO MONITOR PT.
--- NOTE | 2016-10-06 11:04 | NUR ---
TEJAS SPOKE WITH DR PETTIT AND INFORMED HIM THAT INPATIENT BIOLOGIC THERAPY WAS APPROVED FOR INITIAL DOSE. DR PETTIT DECIDED TO HOLD OFF ON INITIATING BIOLOGIC THERAPY AT THIS TIME DUE TO PATIENT BEING IN CVICU NOW. INSTRUCTED DR PETTIT TO LET CM KNOW WHEN HE WAS READY TO INIATE INPATIENT BIOLOGIC THERAPY AND CM WOULD NOTIFY PHARMACY OF APPROVAL.
--- NOTE | 2016-10-06 12:00 | NUR ---
PT AT THE BEDSIDE, ALL QUESTIONS ANSWERED, VSS, WILL CONTINUE TO MONTIOR PT.
--- NOTE | 2016-10-06 12:57 | NUR ---
DR. HERNANDEZ AT THE BEDSIDE
--- NOTE | 2016-10-06 15:03 | NUR ---
10/06/2016 14:59 DCP: Discharge Planning Rec'd call from [employer], [facility] - Dr. Booker is transferring patient to [facility] to Dr. Martin. Requested information (face sheet, lab & CT) faxed to warehouse shipping supervisor at [phone]. [facility] is waiting return call for bed assignment & phone number for report.
[2016-10-06 15:05] LABS: INR 1.33 (0.85-1.17); PROTIME 16.4 SECONDS (11.6-15.0)
[2016-10-06 15:11] LABS: APTT 124.6 SECONDS (22.8-39.4)
[2016-10-06 15:13] LABS: HEMATOCRIT 39.8 % (42.0-54.0); HEMOGLOBIN 13.3 g/dL (13.5-17.5); MCH 30.5 pg (26.0-34.0); MCHC 33.4 g/dL (31.0-37.0); MCV 91.3 fL (80.0-100.0); MEAN PLATELET VOLUME 9.8 fL (7.4-10.4); RBC 4.36 10x6/uL (4.20-6.10); RDW 15.2 % (11.5-14.5); WBC 11.9 10x3/uL (4.8-10.8)
--- NOTE | 2016-10-06 15:47 | NUR ---
PT REPORT CALLED TO KARIS ALLISON RN, PT TO TRANSFER VIA EMS TO [facility].
--- NOTE | 2016-10-06 15:51 | NUR ---
CALLED [facility], SPOKE WITH MEET, PT INFO GIVEN, WILL CALL [facility] WHEN PT LEAVES.
--- NOTE | 2016-10-06 16:00 | NUR ---
Rec'd fax from [facility] Nhung Enciso has been authorized. Copy of authorization placed in medical record. Notified Dr. Aguayo of authorization.
--- NOTE | 2016-10-06 16:45 | NUR ---
INFORMED DR. SRIVASTAVA OF [facility], INFORMED HIM THAT PT JUST FINISHED 2 ENSURES PRIOR TO LEAVING FACILITY. GAVE 20 UNITS OF INSULING PER SLIDING SCALE.
--- NOTE | 2016-10-06 17:10 | NUR ---
EMS AT THE BEDSIDE, PT LEFT VIA EMS, PTS AT THE BEDSIDE TO FOLLOW
--- NOTE | 2016-10-06 17:12 | NUR ---
CALLED [facility], SPOKE WITH ER TO INFORM THAT PT HAD LEFT OUR FACILITY.
== END 2016-10-06 17:10 | disposition short-term general hospital (02) | DRG 356 ==
LOC: D.ER 08:56 → D.CVICU 11:05 → D.MS 11:05 → D.CVICU 10-06 04:59
PROVIDERS: Emergency Medicine; Family Medicine; Internal Medicine Gastroenterology; Specialist; ADMIT Family Medicine
PROC: 0DBN8ZX Excision of Sigmoid Colon, Via Natural or Artificial Opening Endoscopic, Diagnostic (ICD-10-PCS; principal; 2016-10-05 11:00)
PROC: 06H03DZ Insertion of Intraluminal Device into Inferior Vena Cava, Percutaneous Approach (ICD-10-PCS; 2016-10-06)
DX: K51.911 Ulcerative colitis, unspecified with rectal bleeding (principal); I26.92 Saddle embolus of pulmonary artery without acute cor pulmonale; I82.492 Acute embolism and thrombosis of other specified deep vein of left lower extremity; R55 Syncope and collapse; R82.71 Bacteriuria; R73.9 Hyperglycemia, unspecified; N28.89 Other specified disorders of kidney and ureter; Z86.73 Personal history of transient ischemic attack (TIA), and cerebral infarction without residual deficits